=== PATIENT | female | born 1970 | race Caucasian/White ===

== ENCOUNTER 2024-12-20 09:20 | Outpatient (CLI) | payer BC, SELFPAY ==
--- OUTSIDE RECORDS SUMMARY | 2024-12-20 09:25 | XMS_ITS | Data Portability ---
Author Organization [facility] Address [address] [place] [address] Care Team Providers Care Sueding Machine Operator Name Role Phone [facility] Referring Provider [facility] Referring Provide r GRISELDA WONG Referring Provider Assessment Encounter Date Assessment Date Assessment LastModified by Organization Details LastModified Time 09/22/2022 09/22/2022 Mr. Chandler presents for a wellness visit. He follows up on diabetes and A1C is 7.5%. He feels glucose is better since starting the Januvia and he generally feels better. His weight is still in the morbidly obese category but he stays physically active. He is an excellent candidate for a GLP1 Inhibitor for the diabetes and the weight. He is compliant with CPAP. 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 Recently he has been followed for significant sciatica and had physical therapy. He has found the stretches do help and we encourage him to never stop those as he is able to work. He has a history of passing kidney stones and does experience significant pain during episodes. He has tamsulosin to take if needed. Vaccines are reviewed and are up to date except he should consider the new Shingrix Vaccine after he turns 51. Medications are reconciled. He uses occasional viagra and [employer] has the best brown. Lipids are controlled. He had an eye exam several months ago at the local [facility] and we will try to obtain those records. He has not had a history of retinopathy. He had a colonoscopy a year ago and had polyps including tubular adenoma, so will be followed regularly. Blood pressure is not quite at goal and he could not tolerate the 10 mg lisinopril so will remain on 5 mg. Ten year calculated CV risk is 6.09%. We encourage ongoing weight loss and healthy lifestyle. Not available 09/25/2022 23:48:25 09/26/2023 09/26/2023 Mr. Chandler presents for a wellness visit. He follows up on diabetes and A1C is down to 5.6%. He feels glucose is better since starting the Trulicity injections and has lost some weight. There has been some difficulty obtaining the medication through his pharmacy at times so he may miss a week here and there. We discussed he consider changing to a different pharmacy that may be more responsive. He enjoys his work with the [employer] and gets more exercise now. His weight is still in the morbidly obese category but is finally reducing. He is compliant with CPAP. 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 He has a history of significant sciatica and had physical therapy. He has found the stretches do help and we encourage him to never stop those as he is able to work. He has a history of passing kidney stones and does experience significant pain during episodes. He has tamsulosin to take if needed. He is drinking plenty of water now and we encourage that. Vaccines are reviewed and are basically up to date except he should consider the new Shingrix Vaccine at some point in the near future. Medications are reconciled. He still takes a long acting insulin and we will have him cut that dose to 20 units from 25. We are also discontinuing the glimepiride completely as the A1C has reduced to normal range of 5.6% on the GLP1 agonist. He has not had any hypogycemic reactions and we need to avoid those. He should continue the metformin but we hope to completely discontinue the insulin in the near future. Lipids are controlled. He has had eye exams at the local [facility] and we will try to obtain those records. He has not had a history of retinopathy. He had a colonoscopy in 2021 and had polyps including tubular adenoma, so he will likely be due again next year. Blood pressure is much better and should continue to improve with the weight reduction. Ten year calculated CV risk is 4.83%. We encourage ongoing weight loss and healthy lifestyle. We will follow up closely. Not available 09/27/2023 16:33:47 03/22/2024 03/22/2024 Mr. Chandler has been having nausea and dry heaves intermittently. He is on a higher dose of a GLP1 agonist with now a near normal A1C of 6.1%, and continues on Insulin. We suspect he may be having low glucose episodes and also GI side effects from the Trulicity. At this point we will begin a PPI and have him stop the insulin and the Trulicity and see how he feels. In addition labs show a high Calcium along with a high total protein but normal albumin. This is new and warrants further labs. He also has a slight elevation of WBC. Not available 03/24/2024 15:23:41 10/29/2024 10/29/2024 Tristan has generalized poison letitia that will be treated accordingly. Not available 10/29/2024 10:43:43 11/15/2024 11/15/2024 Mr. Chandler presents for a wellness visit. He follows up on diabetes and A1C has increased to 8.0%. It had decreased to 6.1% last fall when he was using the Trulicity at a higher dose and had lost weight. He had to cut the dose back due to GI upset and we realize he had discontinued the PPI and was having more acid reflux. We recommend he resume the Prilosec and try to increase the Trulicity again. feels glucose is better since starting the Trulicity injections and has lost some weight. He has gained a lot of weight back quickly and apparently only eats when he gets home after work. Eating during the day makes him more sleepy. He is compliant with his CPAP but still wakes up frequently. His is concerned about worsening of the cataplexy despite his medications. 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 His neurologist retired from private practice and he was seeing a separate sleep specialist. We discussed that there is a neurologist who also is a sleep specialist in [place] closer to where they live. We will refer him there to Dr. Wong. In the meantime we can increase the Protriptyline to twice daily as a trial. There are apparently some newer medications being used for the narcolepsy so we will defer to the neurologist for that. He has a history of significant sciatica and had physical therapy. He has found the stretches do help and we encourage him to never stop those as he is able to work. He was referred over 2 years ago to pain management after the MRI showed multi-level degenerative disc disease, facet arthrosis and a herniated disc at L5/S1. He had one injection that only helped a couple of days. He and his would like to have a different referral. We will recommend Dr. Espinoza at [facility]. He has a history of passing kidney stones and does experience significant pain during episodes. He has tamsulosin to take if needed. He is drinking plenty of water now and we encourage that. Vaccines are reviewed and are basically up to date except he did miss this past year's flu vaccine. He should consider the new Shingrix Vaccine at some point in the near future. Medications are reconciled. He used to take a long acting insulin and that was discontinued when he was taking a higher dose of the GLP1 agonist. We are advising him to start the PPI again and try to increase the Trulicity again. Lipids are controlled. He has had eye exams at the local [facility] and we will try to obtain those records. He has not had a history of retinopathy. He had a colonoscopy in 2021 and had polyps including tubular adenoma, so he will likely be due again by 2026. Blood pressure has increased a little and we note he has gained weight back and is not sleeping as well. However when he was taking a higher dose of Lisinopril he suffered hypotension. Ten year calculated CV risk is 9.53%. We encourage ongoing weight loss and healthy lifestyle. We will follow up closely. rommel Not available 11/17/2024 22:22:26 Plan of Treatment Reminders Order Date Submit Date Provider Last Modified By Organization Details Last Modified Time Details Appointments None recorded. Lab CMP, serum or plasma 2023 024 [employer] [facility], [address], [place], [address], 4 10:21:23 lipase, serum or plasma 2023 024 [employer] [facility], [address], [place], [address], 4 10:21:24 CBC w/ auto diff 2023 024 [employer] [facility], [address], [place], [address], 4 10:21:24 PTH (parathyroi d hormone), intact + calcium, serum or plasma 2023 024 [employer] [facility], [address], [place], [address], 4 16:21:39 HbA1c (hemoglobin A1c), blood 2023 024 [employer] [facility], [address], [place], [address], 4 10:21:24 Referral neurologist referral 2024 025 arelis Wong MD, [address] [facility] [address], [place], [address], 5 09:20:45 orthopedic spine surgeon referral 2024 025 arelis nguyen MD, [address] [facility], [place], [address], 5 09:20:45 sleep medicine referral 2024 025 TRANG Wong MD, [address] [facility] [address], [place], [address], 5 20:32:09 Procedures None recorded. Surgeries None recorded. Imaging None recorded. Medication Orders omeprazole 40 mg capsule,del ayed release 2024 025 [facility] #[id number], [address], [place], [place], [id number], 5 10:21:05 protriptyli ne 10 mg tablet 2024 025 [facility] #[id number], [address], [place], [id number], 5 10:21:11 Trulicity 1.5 mg/0.5 mL subcutaneou s pen injector 2024 025 [facility]64514, [address], [place], [id number], 5 10:21:13 dexamethaso ne sodium phosphate 4 mg/mL injection solution 2024 [facility]15876, [address], [place], [id number], 5 09:44:00 triamcinolo ne acetonide 0.1 % topical cream 2024 025 [facility] #14597, [address], [place], [id number], 5 10:40:17 methylpredn isolone 4 mg tablets in a dose pack 2024 025 [facility] #31071, [address], [place], [id number], 5 09:42:46 omeprazole 40 mg capsule,del ayed release 2023 025 [facility] #81645, [address], [place], [id number], 5 09:41:45 Ozempic 0.25 mg or 0.5 mg (2 mg/1.5 mL) subcutaneou s pen injector 2022 024 [facility] #63026, [address], [place], [id number], 10:13:56 pravastatin 40 mg tablet 2022 023 [facility], [address] , [place], [place], [id number], 11:46:46 Patient TargetsNo targets recorded. 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 Referring Physician: Court Figueroa [facility], Encounter Date: 11/15/2024 Orthopedic Spine Surgeon Ref erral for Degeneration of thoracolumbar intervertebral disc Referring Physician: Court Figueroa [facility], Encounter Date: 11/15/2024 Results Created Date Observation Date Name Description Value Unit Range Abnormal Flag Note LastModifiedBy Organization Detail LastModifiedTime 09/17/1909/19/2022 ALBUM IN, RANDO M URINE W/CRE ATINI NE creatinine, random urine 133 mg/dL 20-320 normal Not Available [facility] [address] [place], [address], 09/19/2022 12:19:12 09/17/1909/19/2022 ALBUM IN, RANDO M URINE W/CRE ATINI NE albumin, urine 1.1 mg/dL see note: normal Refer ence Range : Refer ence Range Not estab lishe d Not Available [facility] [address] [place], [address], 09/19/2022 12:19:12 09/17/19 23 09/19/2022 ALBUM IN, RANDO M URINE W/CRE ATINI NE albumin/crea tinine ratio, random urine 8 mcg/m g_cre at <30 normal The ADA defin es abnor malit ies in album in excre tion as follo ws: Album inuri a Categ ory Resul t (mcg/ mg creat inine ) Coby l to Mildl y incre ased <30 Moder ately incre ased 30-29 9 Sever sherwin incre ased > OR = 300 The ADA recom mends that at least two of three speci mens colle cted withi n a 3-6 month perio d be abnor mal befor e consi vin g a patie nt to be withi n a diagn ostic categ ory. Not Available [facility] [address] [place], [address], 09/19/2022 12:19:12 09/17/19 23 09/19/2022 LIPID PANEL , [place] cholesterol, total 160 mg/dL <200 normal Not Available [facility] [address] [place], [address], 09/19/2022 12:19:13 09/17/19 23 09/19/2022 LIPID PANEL , [place] HDL cholesterol 56 mg/dL > or = 40 normal Not Available [facility] [address] [place], [address], 09/19/2022 12:19:13 09/17/19 23 09/19/2022 LIPID PANEL , [place] triglyceride s 118 mg/dL <150 normal Not Available [facility] [address] [place], [address], 09/19/2022 12:19:13 09/17/19 23 09/19/2022 LIPID PANEL , [place] LDL-choleste rol 83 mg/dL _(nomi c) normal Refer ence range : <100 Bradley able range <100 mg/dL for prima ry preve ntion ; <70 mg/dL for patie nts with CHD or diabe tic patie nts with > or = 2 CHD risk facto rs. LDL-C is now calcu lated using the Merlene n-Hop kins calcu neville n, which is a valid ated novel metho d provi ding robina r accur acy than the Fried marge equat ion in the estim ation of LDL-C . Merlene mcdonald SS et al. LAILA. 2013; 310(1 9): 2061- 2068 (http ://ed ucati on.Qu estBlue Bottle Coffee. com/f aq/FA Q164) Not Available [facility] [address], [place], [address], 09/19/2022 12:19:13 09/17/19 23 09/19/2022 LIPID PANEL , [place] chol/HDLC ratio 2.9 (calc ) <5.0 normal Not Available [facility] [address], [place], [address], 09/19/2022 12:19:13 09/17/19 23 09/19/2022 LIPID PANEL , [place] non HDL cholesterol 104 mg/dL _(nomi c) <130 normal For patie nts with diabe ihsan plus 1 major ASCVD risk facto r, treat ing to a non-H DL-C goal of <100 mg/dL (LDL- C of <70 mg/dL ) is consi dered a thera peuti c optio n. Not Available [facility] [address], [place], [address], 09/19/2022 12:19:13 09/17/19 23 09/19/2022 COMPR EHENS BÁRBARA METAB OLIC PANEL glucose 146 mg/dL 65-139 high Non-f astin g refer ence inter cynthia Not Available [facility] [address], [place], [address], 09/19/2022 12:19:13 09/17/19 23 09/19/2022 COMPR EHENS BÁRBARA METAB OLIC PANEL urea nitrogen (BUN) 11 mg/dL 7-25 normal Not Available [facility] [address] [place], [address], 09/19/2022 12:19:13 09/17/19 23 09/19/2022 COMPR EHENS BÁRBARA METAB OLIC PANEL creatinine 0.73 mg/dL 0.70-1 .30 normal Not Available [facility] [address] [place], [address], 09/19/2022 12:19:13 09/17/19 23 09/19/2022 COMPR EHENS BÁRBARA METAB OLIC PANEL eGFR 110 mL/mi n/1.7 3m2 > or = 60 normal The eGFR is based on the CKD-E PI 2020 equat ion. To calcu late the new eGFR from a previ ous Creat inine or Cysta tin C resul t, go to https ://ruben w.bry freeman.o ruthann/coreen mcdaniels s/ kdoqi /gfr% 5Fcal culat or Not Available [facility] [address] [place], [address], 09/19/2022 12:19:13 09/17/19 23 09/19/2022 COMPR EHENS BÁRBARA METAB OLIC PANEL BUN/creatini ne ratio NOT APPLIC ABLE (calc ) 6-22 Not Available [facility] [address] [place], [address], 09/19/2022 12:19:13 09/17/19 23 09/19/2022 COMPR EHENS BÁRBARA METAB OLIC PANEL sodium 139 mmol/ L 135-14 6 normal Not Available [facility] [address] [place], [address], 09/19/2022 12:19:13 09/17/19 23 09/19/2022 COMPR EHENS BÁRBARA METAB OLIC PANEL potassium 4.5 mmol/ L 3.5-5. 3 normal Not Available [facility] [address] [facility] [place], [address], 09/19/2022 12:19:13 09/17/19 23 09/19/2022 COMPR EHENS BÁRBARA METAB OLIC PANEL chloride 102 mmol/ L 98-110 normal Not Available [facility] [address] [place] [address], [address], 09/19/2022 12:19:13 09/17/19 23 09/19/2022 COMPR EHENS BÁRBARA METAB OLIC PANEL carbon dioxide 29 mmol/ L 20-32 normal Not Available [facility] [address] [place], [address], 09/19/2022 12:19:13 09/17/19 23 09/19/2022 COMPR EHENS BÁRBARA METAB OLIC PANEL calcium 9.7 mg/dL 8.6-10 .3 normal Not Available [facility] [address] [place] [address], [address], 09/19/2022 12:19:13 09/17/19 23 09/19/2022 COMPR EHENS BÁRBARA METAB OLIC PANEL protein, total 7.3 g/dL 6.1-8. 1 normal Not Available [facility] [address] [place], [address], 09/19/2022 12:19:13 09/17/19 23 09/19/2022 COMPR EHENS BÁRBARA METAB OLIC PANEL albumin 4.4 g/dL 3.6-5. 1 normal Not Available [facility] [address] [place], [address], 09/19/2022 12:19:13 09/17/19 23 09/19/2022 COMPR EHENS BÁRBARA METAB OLIC PANEL globulin 2.9 g/dL_ (calc ) 1.9-3. 7 normal Not Available [facility] [address] [facility] [place], [address], 09/19/2022 12:19:13 09/17/19 23 09/19/2022 COMPR EHENS BÁRBARA METAB OLIC PANEL albumin/glob ulin ratio 1.5 (calc ) 1.0-2. 5 normal Not Available [facility] [address] [facility] [place], [address], 09/19/2022 12:19:13 09/17/19 23 09/19/2022 COMPR EHENS BÁRBARA METAB OLIC PANEL bilirubin, total 0.4 mg/dL 0.2-1. 2 normal Not Available [facility] [address] [place], [address], 09/19/2022 12:19:13 09/17/19 23 09/19/2022 COMPR EHENS BÁRBARA METAB OLIC PANEL alkaline phosphatase 92 U/L 35-144 normal Not Available [facility] [address] [facility] [place], [address], 09/19/2022 12:19:13 09/17/19 23 09/19/2022 COMPR EHENS BÁRBARA METAB OLIC PANEL AST 31 U/L 10-35 normal Not Available [facility] [address] [facility] [place], [address], 09/19/2022 12:19:13 09/17/19 23 09/19/2022 COMPR EHENS BÁRBARA METAB OLIC PANEL ALT 44 U/L 9-46 normal Not Available [facility] [address] [place], [address], 09/19/2022 12:19:13 09/17/19 23 09/19/2022 HEMOG LOBIN A1C hemoglobin A1C 7.5 %_of_ total _HGB <5.7 high For someo ne witho ut known diabe ihsan, a hemog lobin A1c value of 6.5% or great er indic ates that they may have diabe ihsan and this shoul d be confi rmed with a follo w-up test. For someo ne with known diabe ihsan, a value <7% indic ates that their diabe ihsan is well contr olled and a value great er than or equal to 7% indic ates subop timal contr ol. A1c targe ts shoul d be indiv idual ized based on durat ion of diabe ihsan, age, comor bid condi tions , and other consi derat ions. Curre ntly, no conse nsus exist s anjali mondragon use of hemog lobin A1c for diagn osis of diabe ihsan for child kb. Not Available [facility] [address] [place], [address], 09/19/2022 12:19:14 09/17/19 23 09/19/2022 TSH TSH 1.35 mIU/L 0.40-4 .50 normal Not Available [facility] [address] [place], [address], 09/19/2022 12:19:14 09/17/19 23 09/19/2022 CBC (INCL UDES DIFF/ PLT) white blood cell count 10.0 thous and/u L 3.8-10 .8 normal Not Available [facility] [address] [facility] [place], [address], 09/19/2022 12:19:15 09/17/19 23 09/19/2022 CBC (INCL UDES DIFF/ PLT) red blood cell count 4.86 tulio on/uL 4.20-5 .80 normal Not Available [facility] [address] [place], [address], 09/19/2022 12:19:15 09/17/19 23 09/19/2022 CBC (INCL UDES DIFF/ PLT) hemoglobin 14.5 g/dL 13.2-1 7.1 normal Not Available [facility] [address] [facility], [address], 09/19/2022 12:19:15 09/17/19 23 09/19/2022 CBC (INCL UDES DIFF/ PLT) hematocrit 42.1 % 38.5-5 0.0 normal Not Available [facility] [address] [place], [address], 09/19/2022 12:19:15 09/17/19 23 09/19/2022 CBC (INCL UDES DIFF/ PLT) MCV 86.6 fL 80.0-1 00.0 normal Not Available [facility] [address] [facility] [place], [address], 09/19/2022 12:19:15 09/17/19 23 09/19/2022 CBC (INCL UDES DIFF/ PLT) MCH 29.8 pg 27.0-3 3.0 normal Not Available [facility] [address] [place], [address], 09/19/2022 12:19:15 09/17/19 23 09/19/2022 CBC (INCL UDES DIFF/ PLT) MCHC 34.4 g/dL 32.0-3 6.0 normal Not Available [facility] [address] [place], [address], 09/19/2022 12:19:15 09/17/19 23 09/19/2022 CBC (INCL UDES DIFF/ PLT) RDW 12.6 % 11.0-1 5.0 normal Not Available [facility] [address] [place], [address], 09/19/2022 12:19:15 09/17/19 23 09/19/2022 CBC (INCL UDES DIFF/ PLT) platelet count 316 thous and/u L 140-40 0 normal Not Available [facility] [address] [place], [address], 09/19/2022 12:19:15 09/17/19 23 09/19/2022 CBC (INCL UDES DIFF/ PLT) MPV 10.6 fL 7.5-12 .5 normal Not Available [facility] [address] [place], [address], 09/19/2022 12:19:15 09/17/19 23 09/19/2022 CBC (INCL UDES DIFF/ PLT) absolute neutrophils 6410 cells /uL 1500-7 800 normal Not Available [facility] [address] [facility], [place], [address], 09/19/2022 12:19:15 09/17/19 23 09/19/2022 CBC (INCL UDES DIFF/ PLT) absolute lymphocytes 2170 cells /uL 850-39 00 normal Not Available [facility] [address] [place], [address], 09/19/2022 12:19:15 09/17/19 23 09/19/2022 CBC (INCL UDES DIFF/ PLT) absolute monocytes 1000 cells /uL 200-95 0 high Not Available [facility] [address] [place], [address], 09/19/2022 12:19:15 09/17/19 23 09/19/2022 CBC (INCL UDES DIFF/ PLT) absolute eosinophils 340 cells /uL 15-500 normal Not Available [facility] [address] [place], [address], 09/19/2022 12:19:15 09/17/19 23 09/19/2022 CBC (INCL UDES DIFF/ PLT) absolute basophils 80 cells /uL 0-200 normal Not Available [facility] [address], [place], [address], 09/19/2022 12:19:15 09/17/19 23 09/19/2022 CBC (INCL UDES DIFF/ PLT) neutrophils 64.1 % normal Not Available [facility] [address] [facility], [address], 09/19/2022 12:19:15 09/17/19 23 09/19/2022 CBC (INCL UDES DIFF/ PLT) lymphocytes 21.7 % normal Not Available [facility] [address] [place], [address], 09/19/2022 12:19:15 09/17/19 23 09/19/2022 CBC (INCL UDES DIFF/ PLT) monocytes 10.0 % normal Not Available [facility] [address] [place], [address], 09/19/2022 12:19:15 09/17/19 23 09/19/2022 CBC (INCL UDES DIFF/ PLT) eosinophils 3.4 % normal Not Available [facility] [address] [place], [address], 09/19/2022 12:19:15 09/17/19 23 09/19/2022 CBC (INCL UDES DIFF/ PLT) basophils 0.8 % normal Not Available [facility] [address] [place], [address], 09/19/2022 12:19:15 09/17/19 23 09/19/2022 HEPAT ITIS C AB W/REF L TO HCV RNA, QN, PCR hepatitis C antibody NON-RE ACTIVE non-re active normal Not Available [facility] [address] [facility], [address], 09/19/2022 12:19:15 09/17/19 23 09/19/2022 HEPAT ITIS C AB W/REF L TO HCV RNA, QN, PCR index 0.05 <1.00 normal HCV antib farheen was non-r eacti ve. There is no labor atory evide nce of HCV infec tion. In most cases , no furth er actio n is requi red. Howev er, if recen t HCV expos ure is suspe cted, a test for HCV RNA (test code 22601 ) is sugge sted. For addit ional infor matio n pleas e refer to http: //[facility] catronel n.que stdia gnost ics.c om/fa q/FAQ 22v1 (This link is being provi ded for infor matio nal/ educa john l purpo ses only. ) Not Available [facility] [address] [place], [address], 09/19/2022 12:19:15 08/25/19 24 08/26/2023 ALBUM IN, RANDO M URINE W/CRE ATINI NE creatinine, random urine 134 mg/dL 20-320 normal Not Available [facility] [address] [place], [address], 08/26/2023 09:39:38 08/25/19 24 08/26/2023 ALBUM IN, RANDO M URINE W/CRE ATINI NE albumin, urine 0.6 mg/dL see note: normal Refer ence Range : Refer ence Range Not estab lishe d Not Available [facility] [address] [place], [address], 08/26/2023 09:39:38 08/25/19 24 08/26/2023 ALBUM IN, RANDO M URINE W/CRE ATINI NE albumin/crea tinine ratio, random urine 4 mcg/m g_cre at <30 normal The ADA defin es abnor malit ies in album in excre tion as follo ws: Album inuri a Categ ory Resul t (mcg/ mg creat inine ) Coby l to Mildl y incre ased <30 Moder ately incre ased 30-29 9 Sever sherwin incre ased > OR = 300 The ADA recom mends that at least two of three speci mens colle cted withi n a 3-6 month perio d be abnor mal befor e consi vin g a patie nt to be withi n a diagn ostic categ ory. Not Available [facility] [address], [place], [address], 08/26/2023 09:39:38 08/25/19 24 08/26/2023 LIPID PANEL , STAND AGR[place] cholesterol, total 115 mg/dL <200 normal Not Available [facility] [address] [place], [address], 08/26/2023 09:39:39 08/25/19 24 08/26/2023 LIPID PANEL , STAND [place] HDL cholesterol 55 mg/dL > or = 40 normal Not Available [facility] [address], [place], [address], 08/26/2023 09:39:39 08/25/19 24 08/26/2023 LIPID PANEL , STAND [place] triglyceride s 60 mg/dL <150 normal Not Available [facility] [address], [place], [address], 08/26/2023 09:39:39 08/25/19 24 08/26/2023 LIPID PANEL , [place]AND [place] LDL-choleste rol 46 mg/dL _(nomi c) normal Refer ence range : <100 Bradley able range <100 mg/dL for prima ry preve ntion ; <70 mg/dL for patie nts with CHD or diabe tic patie nts with > or = 2 CHD risk facto rs. LDL-C is now calcu lated using the Merlene n-Hop kins calcu neville n, which is a valid ated novel metho d provi alanna robina r accur acy than the Fried marge equat ion in the estim ation of LDL-C . Merlene mcdonald SS et al. LAILA. 2013; 310(1 9): 2061- 2068 (http ://ed ucati on.José Miguel oneill Victivwendy. com/f aq/FA Q164) Not Available [facility] [address] [place], [address], 08/26/2023 09:39:39 08/25/19 24 08/26/2023 LIPID PANEL , [place]AND [place] chol/HDLC ratio 2.1 (calc ) <5.0 normal Not Available [facility] [address] [place], [address], 08/26/2023 09:39:39 08/25/19 24 08/26/2023 LIPID PANEL , [place]AND [place] non HDL cholesterol 60 mg/dL _(nomi c) <130 normal For patie nts with diabe ihsan plus 1 major ASCVD risk facto r, treat ing to a non-H DL-C goal of <100 mg/dL (LDL- C of <70 mg/dL ) is consi dered a thera peuti c optio n. Not Available [facility] [address] [place], [address], 08/26/2023 09:39:39 08/25/19 24 08/26/2023 COMPR EHENS BÁRBARA METAB OLIC PANEL glucose 98 mg/dL 65-99 normal Fasti ng refer ence inter cynthia Not Available [facility] [address] [place], [address], 08/26/2023 09:39:39 08/25/19 24 08/26/2023 COMPR EHENS BÁRBARA METAB OLIC PANEL urea nitrogen (BUN) 8 mg/dL 7-25 normal Not Available [facility] [address] [place], [address], 08/26/2023 09:39:39 08/25/19 24 08/26/2023 COMPR EHENS BÁRBARA METAB OLIC PANEL creatinine 0.71 mg/dL 0.70-1 .30 normal Not Available [facility] [address] [place], [address], 08/26/2023 09:39:39 08/25/19 24 08/26/2023 COMPR EHENS BÁRBARA METAB OLIC PANEL eGFR 110 mL/mi n/1.7 3m2 > or = 60 normal Not Available [facility] [address] [place], [address], 08/26/2023 09:39:39 08/25/19 24 08/26/2023 COMPR EHENS BÁRBARA METAB OLIC PANEL BUN/creatini ne ratio SEE NOTE: (calc ) 6-22 Not Repor tia: BUN and Creat inine are withi n refer ence range . Not Available [facility] [address] [place], [address], 08/26/2023 09:39:39 08/25/19 24 08/26/2023 COMPR EHENS BÁRBARA METAB OLIC PANEL sodium 137 mmol/ L 135-14 6 normal Not Available [facility] [address] [place], [address], 08/26/2023 09:39:39 08/25/19 24 08/26/2023 COMPR EHENS BÁRBARA METAB OLIC PANEL potassium 4.8 mmol/ L 3.5-5. 3 normal Not Available [facility] [address] [place], [address], 08/26/2023 09:39:39 08/25/19 24 08/26/2023 COMPR EHENS BÁRBARA METAB OLIC PANEL chloride 101 mmol/ L 98-110 normal Not Available [facility] [address] [place], [address], 08/26/2023 09:39:39 08/25/19 24 08/26/2023 COMPR EHENS BÁRBARA METAB OLIC PANEL carbon dioxide 30 mmol/ L 20-32 normal Not Available [facility] [address] [place], [address], 08/26/2023 09:39:39 08/25/19 24 08/26/2023 COMPR EHENS BÁRBARA METAB OLIC PANEL calcium 9.6 mg/dL 8.6-10 .3 normal Not Available [facility] [place], [address], 08/26/2023 09:39:39 08/25/19 24 08/26/2023 COMPR EHENS BÁRBARA METAB OLIC PANEL protein, total 7.3 g/dL 6.1-8. 1 normal Not Available [facility] [address] [place], [place] [address], [place], [address], 08/26/2023 09:39:39 08/25/19 24 08/26/2023 COMPR EHENS BÁRBARA METAB OLIC PANEL albumin 4.4 g/dL 3.6-5. 1 normal Not Available [facility] [address] [place], [place] [address], [address], 08/26/2023 09:39:39 08/25/19 24 08/26/2023 COMPR EHENS BÁRBARA METAB OLIC PANEL globulin 2.9 g/dL_ (calc ) 1.9-3. 7 normal Not Available [facility] [address] [place] [address], [address], 08/26/2023 09:39:39 08/25/19 24 08/26/2023 COMPR EHENS BÁRBARA METAB OLIC PANEL albumin/glob ulin ratio 1.5 (calc ) 1.0-2. 5 normal Not Available [facility] [address] [place] [address], [address], 08/26/2023 09:39:39 08/25/19 24 08/26/2023 COMPR EHENS BÁRBARA METAB OLIC PANEL bilirubin, total 0.4 mg/dL 0.2-1. 2 normal Not Available [facility] [address] [place], [place] [address] [place], [address], 08/26/2023 09:39:39 08/25/1908/26/2023 COMPR EHENS BÁRABRA METAB OLIC PANEL alkaline phosphatase 87 U/L 35-144 normal Not Available [facility] [address] [facility] [place], [address], 08/26/2023 09:39:39 08/25/19 24 08/26/2023 COMPR EHENS BÁRBARA METAB OLIC PANEL AST 16 U/L 10-35 normal Not Available [facility] [address] [facility] [place], [address], 08/26/2023 09:39:39 08/25/19 24 08/26/2023 COMPR EHENS BÁRBARA METAB OLIC PANEL ALT 16 U/L 9-46 normal Not Available [facility] [address] [facility], [address], 08/26/2023 09:39:39 08/25/1908/26/2023 HEMOG LOBIN A1C hemoglobin A1C 5.6 %_of_ total _HGB <5.7 normal For the purpo se of milagro brown for the prese nce of diabe ihsan: <5.7% Consi stent with the absen ce of diabe ihsan 5.7-6 .4% Consi stent with incre ased risk for diabe ihsan (pred iabet es) > or =6.5% Consi stent with diabe ihsan This assay resul t is consi stent with a decre ased risk of diabe ihsan. Curre ntly, no conse nsus exist s anjali mondragon use of hemog lobin A1c for diagn osis of diabe ihsan in child kb. Accor alanna to Ameri can Diabe ihsan Assoc iatio n (ADA) guide lines , hemog lobin A1c <7.0% repre sents optim al contr ol in non-p regna nt diabe tic patie nts. Diffe rent metri cs may apply to speci fic patie nt popul ation s. Stand ards of Medic al Care in Diabe ihsan(A DA). HbA1c perfo rmed on Abbot t platshauna orm. Not Available [facility] [address], [place], [address], 08/26/2023 09:39:40 08/25/1908/26/2023 TSH TSH 0.62 mIU/L 0.40-4 .50 normal Not Available [facility] [address], [place], [address], 08/26/2023 09:39:40 08/25/1908/26/2023 CBC (INCL UDES DIFF/ PLT) white blood cell count 7.7 thous and/u L 3.8-10 .8 normal Not Available [facility] [address], [place], [address], 08/26/2023 09:39:41 08/25/1908/26/2023 CBC (INCL UDES DIFF/ PLT) red blood cell count 5.17 tulio on/uL 4.20-5 .80 normal Not Available [facility] [address], [place], [address], 08/26/2023 09:39:41 08/25/1908/26/2023 CBC (INCL UDES DIFF/ PLT) hemoglobin 15.1 g/dL 13.2-1 7.1 normal Not Available [facility] [address], [place], [address], 08/26/2023 09:39:41 08/25/1908/26/2023 CBC (INCL UDES DIFF/ PLT) hematocrit 45.8 % 38.5-5 0.0 normal Not Available [facility] [address], [place], [address], 08/26/2023 09:39:41 08/25/1926 0808/26/2023 CBC (INCL UDES DIFF/ PLT) MCV 88.6 fL 80.0-1 00.0 normal Not Available [facility] [address] [place], [address], 08/26/2023 09:39:41 08/25/19 24 08/26/2023 CBC (INCL UDES DIFF/ PLT) MCH 29.2 pg 27.0-3 3.0 normal Not Available [facility] [address] [place], [address], 08/26/2023 09:39:41 08/25/1908/26/2023 CBC (INCL UDES DIFF/ PLT) MCHC 33.0 g/dL 32.0-3 6.0 normal Not Available [facility] [address] [place] [address], [address], 08/26/2023 09:39:41 08/25/1908/26/2023 CBC (INCL UDES DIFF/ PLT) RDW 12.6 % 11.0-1 5.0 normal Not Available [facility] [facility] [place], [address], 08/26/2023 09:39:41 08/25/1908/26/2023 CBC (INCL UDES DIFF/ PLT) platelet count 329 thous and/u L 140-40 0 normal Not Available [facility] [address] [place], [place] [address], [address], 08/26/2023 09:39:41 08/25/1908/26/2023 CBC (INCL UDES DIFF/ PLT) MPV 10.6 fL 7.5-12 .5 normal Not Available [facility] [place], [address], 08/26/2023 09:39:41 08/25/19 24 08/26/2023 CBC (INCL UDES DIFF/ PLT) absolute neutrophils 4836 cells /uL 1500-7 800 normal Not Available [facility] [address], [place], [address], 08/26/2023 09:39:41 08/25/19 24 08/26/2023 CBC (INCL UDES DIFF/ PLT) absolute lymphocytes 1863 cells /uL 850-39 00 normal Not Available [facility] [address], [place], [address], 08/26/2023 09:39:41 08/25/19 24 08/26/2023 CBC (INCL UDES DIFF/ PLT) absolute monocytes 708 cells /uL 200-95 0 normal Not Available [facility] [address], [place], [address], 08/26/2023 09:39:41 08/25/19 24 08/26/2023 CBC (INCL UDES DIFF/ PLT) absolute eosinophils 223 cells /uL 15-500 normal Not Available [facility] [address] [facility], [place], [address], 08/26/2023 09:39:41 08/25/19 24 08/26/2023 CBC (INCL UDES DIFF/ PLT) absolute basophils 69 cells /uL 0-200 normal Not Available [facility] [address], [place], [address], 08/26/2023 09:39:41 08/25/19 24 08/26/2023 CBC (INCL UDES DIFF/ PLT) neutrophils 62.8 % normal Not Available [facility] [address], [place], [address], 08/26/2023 09:39:41 08/25/19 24 08/26/2023 CBC (INCL UDES DIFF/ PLT) lymphocytes 24.2 % normal Not Available [facility] [address] [facility], [place], [address], 08/26/2023 09:39:41 08/25/19 24 08/26/2023 CBC (INCL UDES DIFF/ PLT) monocytes 9.2 % normal Not Available [facility] [address] [place], [address], 08/26/2023 09:39:41 08/25/19 24 08/26/2023 CBC (INCL UDES DIFF/ PLT) eosinophils 2.9 % normal Not Available [facility] [address] [place], [address], 08/26/2023 09:39:41 08/25/19 24 08/26/2023 CBC (INCL UDES DIFF/ PLT) basophils 0.9 % normal Not Available [facility] [address] [place], [address], 08/26/2023 09:39:41 08/25/19 24 08/26/2023 PSA, TOTAL PSA, total 0.37 NG/mL < or = 4.00 normal The total PSA value from this assay syste m is stand ardiz ed again st the WHO stand garland. The test resul t will be appro ximat sherwin 20% lower when mary red to the equim olar- stand ardiz ed total PSA (Hopkins man Coult er). Mary rison of seria l PSA resul ts shoul d be inter prete d with this fact in mind. This test was perfo rmed using the [employer] chemi lumin escen t metho d. Value s obtai marck from diffe rent assay metho ds canno t be used inter ha eably . PSA level s, regar dless of value , shoul d not be inter prete d as absol sokaogon evide nce of the prese nce or absen ce of disea se. Not Available [facility] [address] [place], [address], 08/26/2023 09:39:41 03/22/20 24 03/23/2024 COMPR EHENS BÁRBARA METAB OLIC PANEL glucose 122 mg/dL 65-99 high Fasti ng refer ence inter cynthai For someo ne witho ut known diabe ihsan, a gluco se value betwe en 100 and 125 mg/dL is consi stent with predi abete s and shoul d be confi rmed with a follo w-up test. Not Available [facility] [address] [place], [address], 03/23/2024 10:21:22 03/22/20 24 03/23/2024 COMPR EHENS BÁRBARA METAB OLIC PANEL urea nitrogen (BUN) 11 mg/dL 7-25 normal Not Available [facility] [address] [place], [address], 03/23/2024 10:21:22 03/22/20 24 03/23/2024 COMPR EHENS BÁRBARA METAB OLIC PANEL creatinine 0.84 mg/dL 0.70-1 .30 normal Not Available [facility] [address] [place], [address], 03/23/2024 10:21:22 03/22/20 24 03/23/2024 COMPR EHENS BÁRBARA METAB OLIC PANEL eGFR 104 mL/mi n/1.7 3m2 > or = 60 normal Not Available [facility] [address] [place], [address], 03/23/2024 10:21:22 03/22/20 24 03/23/2024 COMPR EHENS BÁRBARA METAB OLIC PANEL BUN/creatini ne ratio SEE NOTE: (calc ) 6-22 Not Repor tia: BUN and Creat inine are withi n refer ence range . Not Available [facility] [address] [place], [address], 03/23/2024 10:21:22 03/22/20 24 03/23/2024 COMPR EHENS BÁRBARA METAB OLIC PANEL sodium 140 mmol/ L 135-14 6 normal Not Available [facility] [address] [place], [address], 03/23/2024 10:21:22 03/22/20 24 03/23/2024 COMPR EHENS BÁRBARA METAB OLIC PANEL potassium 4.8 mmol/ L 3.5-5. 3 normal Not Available [facility] [address] [place], [address], 03/23/2024 10:21:22 03/22/20 24 03/23/2024 COMPR EHENS BÁRBARA METAB OLIC PANEL chloride 98 mmol/ L 98-110 normal Not Available [facility] [address] [place], [address], 03/23/2024 10:21:22 03/22/20 24 03/23/2024 COMPR EHENS BÁRBARA METAB OLIC PANEL carbon dioxide 30 mmol/ L 20-32 normal Not Available [facility] [address] [place], [address], 03/23/2024 10:21:22 03/22/20 24 03/23/2024 COMPR EHENS BÁRBARA METAB OLIC PANEL calcium 11.2 mg/dL 8.6-10 .3 high Not Available [facility] [address] [place], [address], 03/23/2024 10:21:22 03/22/20 24 03/23/2024 COMPR EHENS BÁRBARA METAB OLIC PANEL protein, total 8.5 g/dL 6.1-8. 1 high Not Available [facility] [address] [place], [address], 03/23/2024 10:21:22 03/22/20 24 03/23/2024 COMPR EHENS BÁRBARA METAB OLIC PANEL albumin 5.1 g/dL 3.6-5. 1 normal Not Available [facility] [address] [facility] [place], [address], 03/23/2024 10:21:22 03/22/20 24 03/23/2024 COMPR EHENS BÁRBARA METAB OLIC PANEL globulin 3.4 g/dL_ (calc ) 1.9-3. 7 normal Not Available [facility] [address] [place], [address], 03/23/2024 10:21:22 03/22/20 24 03/23/2024 COMPR EHENS BÁRBARA METAB OLIC PANEL albumin/glob ulin ratio 1.5 (calc ) 1.0-2. 5 normal Not Available [facility] [address] [place], [address], 03/23/2024 10:21:22 03/22/20 24 03/23/2024 COMPR EHENS BÁRBARA METAB OLIC PANEL bilirubin, total 0.7 mg/dL 0.2-1. 2 normal Not Available [facility] [address] [facility] [place], [address], 03/23/2024 10:21:22 03/22/20 24 03/23/2024 COMPR EHENS BÁRBARA METAB OLIC PANEL alkaline phosphatase 110 U/L 35-144 normal Not Available [facility] [address] [place], [address], 03/23/2024 10:21:22 03/22/20 24 03/23/2024 COMPR EHENS BÁRBARA METAB OLIC PANEL AST 22 U/L 10-35 normal Not Available [facility] [address] [place], [address], 03/23/2024 10:21:22 03/22/20 24 03/23/2024 COMPR EHENS BÁRBARA METAB OLIC PANEL ALT 23 U/L 9-46 normal Not Available [facility] [address] [place], [address], 03/23/2024 10:21:22 03/22/20 24 03/23/2024 HEMOG LOBIN A1C hemoglobin A1C 6.1 %_of_ total _HGB <5.7 high For someo ne witho ut known diabe ihsan, a hemog lobin A1c value betwe en 5.7% and 6.4% is consi stent with predi abete s and shoul d be confi rmed with a follo w-up test. For someo ne with known diabe ihsan, a value <7% indic ates that their diabe ihsan is well contr olled . A1c targe ts shoul d be indiv idual ized based on durat ion of diabe ihsan, age, comor bid condi tions , and other consi derat ions. This assay resul t is consi stent with an incre ased risk of diabe ihsan. Curre ntly, no conse nsus exist s regar ding use of hemog lobin A1c for diagn osis of diabe ihsan for child kb. This test was perfo rmed on the Vivien marce c503 platf orm. Effec tive 4, a ha e in test platf orms from the [facility]bot t Archi tect to the Vivien marce c503 may have shift ed HbA1c resul ts mary red to histo rical resul ts. Based on labor atory valid ation testi ng condu cted at [facility] , the Vivien platf orm relat bárbara to the [employer] platf orm had an avera ge incre ase in HbA1c value of < or = 0.3%. This diffe rence is withi n accep tia varia bilit y estab lishe d by the Natio nal [employer] hemog lobin Stand ardiz ation Progr am. Note that not all indiv idual s will have had a shift in their resul ts and direc t mary rison s betwe en histo rical and curre nt resul ts for testi ng condu cted on diffe rent platf orms is not recom johnie d. Not Available [facility] [address] [facility], [place], [address], 03/23/2024 10:21:24 03/22/20 24 03/23/2024 LIPAS E lipase 27 U/L 7-60 normal Not Available [facility] [address] [facility] [address], [place], [address], 03/23/2024 10:21:24 03/22/20 24 03/23/2024 CBC (INCL UDES DIFF/ PLT) white blood cell count 13.2 thous and/u L 3.8-10 .8 high Not Available [facility] [address] [facility] [place], [address], 03/23/2024 10:21:24 03/22/20 24 03/23/2024 CBC (INCL UDES DIFF/ PLT) red blood cell count 5.49 tulio on/uL 4.20-5 .80 normal Not Available [facility] [address] [facility] [facility], [place], [address], 03/23/2024 10:21:24 03/22/20 24 03/23/2024 CBC (INCL UDES DIFF/ PLT) hemoglobin 16.8 g/dL 13.2-1 7.1 normal Not Available [facility] [address] [facility] [place], [address], 03/23/2024 10:21:24 03/22/20 24 03/23/2024 CBC (INCL UDES DIFF/ PLT) hematocrit 51.3 % 38.5-5 0.0 high Not Available [facility] [address] [facility] [place], [address], 03/23/2024 10:21:24 03/22/20 24 03/23/2024 CBC (INCL UDES DIFF/ PLT) MCV 93.4 fL 80.0-1 00.0 normal Not Available [facility] [address] [facility] [place], [address], 03/23/2024 10:21:24 03/22/20 24 03/23/2024 CBC (INCL UDES DIFF/ PLT) MCH 30.6 pg 27.0-3 3.0 normal Not Available [facility] [address], [place], [address], 03/23/2024 10:21:24 03/22/20 24 03/23/2024 CBC (INCL UDES DIFF/ PLT) MCHC 32.7 g/dL 32.0-3 6.0 normal Not Available [facility] [address], [place], [address], 03/23/2024 10:21:24 03/22/20 24 03/23/2024 CBC (INCL UDES DIFF/ PLT) RDW 12.7 % 11.0-1 5.0 normal Not Available [facility] [address] [facility] [facility] [address], [place], [address], 03/23/2024 10:21:24 03/22/20 24 03/23/2024 CBC (INCL UDES DIFF/ PLT) platelet count 371 thous and/u L 140-40 0 normal Not Available [facility] [address] [facility] [facility] [address], [place], [address], 03/23/2024 10:21:24 03/22/20 24 03/23/2024 CBC (INCL UDES DIFF/ PLT) MPV 10.0 fL 7.5-12 .5 normal Not Available [facility] [address], [place], [address], 03/23/2024 10:21:24 03/22/20 24 03/23/2024 CBC (INCL UDES DIFF/ PLT) absolute neutrophils 9068 cells /uL 1500-7 800 high Not Available [facility] [address] [facility], [place], [address], 03/23/2024 10:21:24 03/22/20 24 03/23/2024 CBC (INCL UDES DIFF/ PLT) absolute lymphocytes 2495 cells /uL 850-39 00 normal Not Available [facility] [address], [place], [address], 03/23/2024 10:21:24 03/22/20 24 03/23/2024 CBC (INCL UDES DIFF/ PLT) absolute monocytes 1412 cells /uL 200-95 0 high Not Available [facility] [address], [place], [address], 03/23/2024 10:21:24 03/22/20 24 03/23/2024 CBC (INCL UDES DIFF/ PLT) absolute eosinophils 132 cells /uL 15-500 normal Not Available [facility] [address] [facility] [place], [address], 03/23/2024 10:21:24 03/22/20 24 03/23/2024 CBC (INCL UDES DIFF/ PLT) absolute basophils 92 cells /uL 0-200 normal Not Available [facility] [address], [place], [address], 03/23/2024 10:21:24 03/22/20 24 03/23/2024 CBC (INCL UDES DIFF/ PLT) neutrophils 68.7 % normal Not Available [facility] [address], [place], [address], 03/23/2024 10:21:24 03/22/20 24 03/23/2024 CBC (INCL UDES DIFF/ PLT) lymphocytes 18.9 % normal Not Available [facility] [address], [place], [address], 03/23/2024 10:21:24 03/22/20 24 03/23/2024 CBC (INCL UDES DIFF/ PLT) monocytes 10.7 % normal Not Available [facility] [address] [place], [address], 03/23/2024 10:21:24 03/22/20 24 03/23/2024 CBC (INCL UDES DIFF/ PLT) eosinophils 1.0 % normal Not Available [facility] [address] [place], [address], 03/23/2024 10:21:24 03/22/20 24 03/23/2024 CBC (INCL UDES DIFF/ PLT) basophils 0.7 % normal Not Available [facility] [address] [place], [address], 03/23/2024 10:21:24 03/26/20 24 03/27/2024 PTH, INTAC T (ICMA ) AND IONIZ ED CALCI UM parathyroid hormone, intact 32 pg/mL 16-77 normal Inter preti ve Guide Intac t PTH Calci um ----- ----- ----- --- ----- ----- ----- -- Coby l Parat hyroi d Coby l Coby l Hypop ronna yroid ism Low or Low Coby l Low Hyper parat hyroi dism Prima ry Coby l or High High Secon roman High Coby l or Low Terti vanessa High High Non-P ronna yroid Hyper calce liz Low or Low Coby l High Not Available [facility] [place] [facility] [address] [place], [address], 03/27/2024 16:21:38 03/26/20 24 03/27/2024 PTH, INTAC T (ICMA ) AND IONIZ ED CALCI UM calcium 9.3 mg/dL 8.6-10 .3 normal Not Available [facility] [place] [facility] [address] [place], [address], 03/27/2024 16:21:38 03/26/20 24 03/27/2024 PTH, INTAC T (ICMA ) AND IONIZ ED CALCI UM calcium, ionized 5.1 mg/dL 4.7-5. 5 normal Not Available [facility] [place] [facility] [address] [place], [address], 03/27/2024 16:21:38 10/30/19 25 10/30/2024 ALBUM IN, RANDO M URINE W/CRE ATINI NE creatinine, random urine 175 mg/dL 20-320 normal Not Available [facility] [place] [facility] [address] [facility] [place], [address], 10/30/2024 15:07:51 10/30/19 25 10/30/2024 ALBUM IN, RANDO M URINE W/CRE ATINI NE albumin, urine 0.9 mg/dL see note: normal Refer ence Range : Refer ence Range Not estab lishe d Not Available [facility] [place] [facility] [address] [facility], [place], [address], 10/30/2024 15:07:51 10/30/19 25 10/30/2024 ALBUM IN, RANDO M URINE W/CRE ATINI NE albumin/crea tinine ratio, random urine 5 mg/g_ creat <30 normal The ADA defin es abnor malit ies in album in excre tion as follo ws: Album inuri a Categ ory Resul t (mg/g creat inine ) Coby l to Mildl y incre ased <30 Moder ately incre ased 30-29 9 Sever sherwin incre ased > OR = 300 The ADA recom mends that at least two of three speci mens colle cted withi n a 3-6 month perio d be abnor mal befor e consi vin g a patie nt to be withi n a diagn ostic categ ory. Not Available [facility] [place] [facility] [address] [facility], [place], [address], 10/30/2024 15:07:51 10/30/19 25 10/30/2024 LIPID PANEL , [place] cholesterol, total 181 mg/dL <200 normal Not Available [facility] [place] [facility] [address] [facility] [place], [address], 10/30/2024 15:07:52 10/30/19 25 10/30/2024 LIPID PANEL , [place] HDL cholesterol 62 mg/dL > or = 40 normal Not Available [facility] [place] [facility] [address] [facility] [place], [address], 10/30/2024 15:07:52 10/30/19 25 10/30/2024 LIPID PANEL , [place] triglyceride s 138 mg/dL <150 normal Not Available [facility] [place] [facility] [address] [facility] [place], [address], 10/30/2024 15:07:52 10/30/19 25 10/30/2024 LIPID PANEL , [place] LDL-choleste rol 95 mg/dL _(nomi c) normal Refer ence range : <100 Bradley able range <100 mg/dL for prima ry preve ntion ; <70 mg/dL for patie nts with CHD or diabe tic patie nts with > or = 2 CHD risk facto rs. LDL-C is now calcu lated using the Merlene n-Hop kins calcu latio n, which is a valid ated novel metho d provi ding robina r accur acy than the Fried marge equat ion in the estim ation of LDL-C . Merlene mcdonald SS et al. LAILA. 2013; 310(1 9): 2061- 2068 (http ://ed ucati on.Qu Tariq parmarAirpushs. com/f aq/FA Q164) Not Available [facility] [place] [facility] [address] [facility] [place], [address], 10/30/2024 15:07:52 10/30/19 25 10/30/2024 LIPID PANEL , [place] chol/HDLC ratio 2.9 (calc ) <5.0 normal Not Available [facility] [place] [facility] [address] [place], [address], 10/30/2024 15:07:52 10/30/19 25 10/30/2024 LIPID PANEL , [place] non HDL cholesterol 119 mg/dL _(nomi c) <130 normal For patie nts with diabe ihsan plus 1 major ASCVD risk facto r, treat ing to a non-H DL-C goal of <100 mg/dL (LDL- C of <70 mg/dL ) is consi dered a thera peuti c optio n. Not Available [facility] [place] [facility] [address], [place], [address], 10/30/2024 15:07:52 10/30/19 25 10/30/2024 COMPR EHENS BÁRBARA METAB OLIC PANEL glucose 182 mg/dL 65-139 high Non-f astin g refer ence inter cynthia Not Available [facility] [address] [facility] [place], [address], 10/30/2024 15:07:52 10/30/19 25 10/30/2024 COMPR EHENS BÁRBARA METAB OLIC PANEL urea nitrogen (BUN) 8 mg/dL 7-25 normal Not Available [facility] [place] [facility] [address] [facility], [place], [address], 10/30/2024 15:07:52 10/30/19 25 10/30/2024 COMPR EHENS BÁRBARA METAB OLIC PANEL creatinine 0.80 mg/dL 0.70-1 .30 normal Not Available [facility] [place] [facility] [address], [place], [address], 10/30/2024 15:07:52 10/30/19 25 10/30/2024 COMPR EHENS BÁRBARA METAB OLIC PANEL eGFR 106 mL/mi n/1.7 3m2 > or = 60 normal Not Available [facility] [address], [place], [address], 10/30/2024 15:07:52 10/30/19 25 10/30/2024 COMPR EHENS BÁRBARA METAB OLIC PANEL BUN/creatini ne ratio SEE NOTE: (calc ) 6-22 Not Repor tia: BUN and Creat inine are withi n refer ence range . Not Available [facility] [address] [place], [address], 10/30/2024 15:07:52 10/30/19 25 10/30/2024 COMPR EHENS BÁRBARA METAB OLIC PANEL sodium 138 mmol/ L 135-14 6 normal Not Available [facility] [address] [place], [address], 10/30/2024 15:07:52 10/30/19 25 10/30/2024 COMPR EHENS BÁRBARA METAB OLIC PANEL potassium 4.5 mmol/ L 3.5-5. 3 normal Not Available [facility] [address] [place], [address], 10/30/2024 15:07:52 10/30/19 25 10/30/2024 COMPR EHENS BÁRBARA METAB OLIC PANEL chloride 100 mmol/ L 98-110 normal Not Available [facility] [address] [place], [address], 10/30/2024 15:07:52 10/30/19 25 10/30/2024 COMPR EHENS BÁRBARA METAB OLIC PANEL carbon dioxide 28 mmol/ L 20-32 normal Not Available [facility] [address] [place], [address], 10/30/2024 15:07:52 10/30/19 25 10/30/2024 COMPR EHENS BÁRBARA METAB OLIC PANEL calcium 10.1 mg/dL 8.6-10 .3 normal Not Available [facility] [address] [place], [address], 10/30/2024 15:07:52 10/30/19 25 10/30/2024 COMPR EHENS BÁRBARA METAB OLIC PANEL protein, total 7.6 g/dL 6.1-8. 1 normal Not Available [facility] [address] [facility] [place], [address], 10/30/2024 15:07:52 10/30/19 25 10/30/2024 COMPR EHENS BÁRBARA METAB OLIC PANEL albumin 4.6 g/dL 3.6-5. 1 normal Not Available [facility] [address] [facility] [place], [address], 10/30/2024 15:07:52 10/30/19 25 10/30/2024 COMPR EHENS BÁRBARA METAB OLIC PANEL globulin 3.0 g/dL_ (calc ) 1.9-3. 7 normal Not Available [facility] [address] [facility] [place], [address], 10/30/2024 15:07:52 10/30/19 25 10/30/2024 COMPR EHENS BÁRBARA METAB OLIC PANEL albumin/glob ulin ratio 1.5 (calc ) 1.0-2. 5 normal Not Available [facility] [address] [facility] [place], [address], 10/30/2024 15:07:52 10/30/19 25 10/30/2024 COMPR EHENS BÁRBARA METAB OLIC PANEL bilirubin, total 0.4 mg/dL 0.2-1. 2 normal Not Available [facility] [address] [facility] [place], [address], 10/30/2024 15:07:52 10/30/19 25 10/30/2024 COMPR EHENS BÁRBARA METAB OLIC PANEL alkaline phosphatase 104 U/L 35-144 normal Not Available [facility] [address] [facility] [place], [address], 10/30/2024 15:07:52 10/30/19 25 10/30/2024 COMPR EHENS BÁRBARA METAB OLIC PANEL AST 23 U/L 10-35 normal Not Available [facility] [place] [facility] [address] [facility], [address], 10/30/2024 15:07:52 10/30/19 25 10/30/2024 COMPR EHENS BÁRBARA METAB OLIC PANEL ALT 27 U/L 9-46 normal Not Available [facility] [place] [facility] [address] [facility] [place], [address], 10/30/2024 15:07:52 10/30/19 25 10/30/2024 HEMOG LOBIN A1C hemoglobin A1C 8.0 % <5.7 high For someo ne witho ut known diabe ihsan, a hemog lobin A1c value of 6.5% or great er indic ates that they may have diabe ihsan and this shoul d be confi rmed with a follo w-up test. For someo ne with known diabe ihsan, a value <7% indic ates that their diabe ihsan is well contr olled and a value great er than or equal to 7% indic ates subop timal contr ol. A1c targe ts shoul d be indiv idual ized based on durat ion of diabe ihsan, age, comor bid condi tions , and other consi derat ions. Curre ntly, no conse nsus exist s anjali mondragon use of hemog lobin A1c for diagn osis of diabe ihsan for child kb. Not Available [facility] [place] [facility] [address] [facility], [address], 10/30/2024 15:07:53 10/30/19 25 10/30/2024 TSH TSH 0.78 mIU/L 0.40-4 .50 normal Not Available [facility] [place] [facility] [address] [place], [address], 10/30/2024 15:07:53 10/30/19 25 10/30/2024 CBC (INCL UDES DIFF/ PLT) white blood cell count 10.1 thous and/u L 3.8-10 .8 normal Not Available [facility] [address] [facility] [place], [address], 10/30/2024 15:07:53 10/30/19 25 10/30/2024 CBC (INCL UDES DIFF/ PLT) red blood cell count 5.16 tulio on/uL 4.20-5 .80 normal Not Available [facility] [address] [facility] [place], [address], 10/30/2024 15:07:53 10/30/19 25 10/30/2024 CBC (INCL UDES DIFF/ PLT) hemoglobin 15.7 g/dL 13.2-1 7.1 normal Not Available [facility] [address] [facility] [place], [address], 10/30/2024 15:07:53 10/30/19 25 10/30/2024 CBC (INCL UDES DIFF/ PLT) hematocrit 47.7 % 38.5-5 0.0 normal Not Available [facility] [facility] [place], [address], 10/30/2024 15:07:53 10/30/19 25 10/30/2024 CBC (INCL UDES DIFF/ PLT) MCV 92.4 fL 80.0-1 00.0 normal Not Available [facility] [facility] [place], [address], 10/30/2024 15:07:53 10/30/19 25 10/30/2024 CBC (INCL UDES DIFF/ PLT) MCH 30.4 pg 27.0-3 3.0 normal Not Available [facility] [place], [address], 10/30/2024 15:07:53 10/30/19 25 10/30/2024 CBC (INCL UDES DIFF/ PLT) MCHC 32.9 g/dL 32.0-3 6.0 normal For adult s, a sligh t decre ase in the calcu lated MCHC value (in the range of 30 to 32 g/dL) is most likel y not clini isabell signi froylan t; laurie er, it shoul d be inter prete d with cauti on in [facility] with other red cell malinda eters and the patie nt's clini nomi condi tion. Not Available [facility] [place] [facility] [address], [place], [address], 10/30/2024 15:07:53 10/30/19 25 10/30/2024 CBC (INCL UDES DIFF/ PLT) RDW 12.4 % 11.0-1 5.0 normal Not Available [facility] [place] [facility] [address], [place], [address], 10/30/2024 15:07:53 10/30/19 25 10/30/2024 CBC (INCL UDES DIFF/ PLT) platelet count 320 thous and/u L 140-40 0 normal Not Available [facility] [place] [facility] [address], [place], [address], 10/30/2024 15:07:53 10/30/19 25 10/30/2024 CBC (INCL UDES DIFF/ PLT) MPV 10.2 fL 7.5-12 .5 normal Not Available [facility] [place] [facility] [address], [place], [address], 10/30/2024 15:07:53 10/30/19 25 10/30/2024 CBC (INCL UDES DIFF/ PLT) absolute neutrophils 6868 cells /uL 1500-7 800 normal Not Available [facility] [place] [facility] [address], [place], [address], 10/30/2024 15:07:53 10/30/19 25 10/30/2024 CBC (INCL UDES DIFF/ PLT) absolute lymphocytes 1980 cells /uL 850-39 00 normal Not Available [facility] [place] [facility] [address], [place], [address], 10/30/2024 15:07:53 10/30/19 25 10/30/2024 CBC (INCL UDES DIFF/ PLT) absolute monocytes 970 cells /uL 200-95 0 high Not Available [facility] [place] [facility] [address], [place], [address], 10/30/2024 15:07:53 10/30/19 25 10/30/2024 CBC (INCL UDES DIFF/ PLT) absolute eosinophils 212 cells /uL 15-500 normal Not Available [facility] [place] [facility] [address], [place], [address], 10/30/2024 15:07:53 10/30/19 25 10/30/2024 CBC (INCL UDES DIFF/ PLT) absolute basophils 71 cells /uL 0-200 normal Not Available [facility] [place] [facility] [address], [place], [address], 10/30/2024 15:07:53 10/30/19 25 10/30/2024 CBC (INCL UDES DIFF/ PLT) neutrophils 68 % normal Not Available [facility] [place] [facility] [address], [place], [address], 10/30/2024 15:07:53 10/30/19 25 10/30/2024 CBC (INCL UDES DIFF/ PLT) lymphocytes 19.6 % normal Not Available [facility] [place] [facility] [address], [place], [address], 10/30/2024 15:07:53 10/30/19 25 10/30/2024 CBC (INCL UDES DIFF/ PLT) monocytes 9.6 % normal Not Available [facility] [place] [facility] [address], [place], [address], 10/30/2024 15:07:53 10/30/19 25 10/30/2024 CBC (INCL UDES DIFF/ PLT) eosinophils 2.1 % normal Not Available [facility] [place] [facility] [address] [place], [address], 10/30/2024 15:07:53 10/30/19 25 10/30/2024 CBC (INCL UDES DIFF/ PLT) basophils 0.7 % normal Not Available [facility] [place] [facility] [address] [place], [address], 10/30/2024 15:07:53 10/30/19 25 10/30/2024 PSA, TOTAL PSA, total 0.31 NG/mL < or = 4.00 normal The total PSA value from this assay syste m is stand ardiz ed again st the WHO stand [place]. The test resul t will be appro ximat sherwin 20% lower when mary red to the equim olar- stand ardiz ed total PSA ([place] man Coult er). Mary rison of seria l PSA resul ts shoul d be inter prete d with this fact in mind. This test was perfo rmed using the [employer] chemi lumin escen t metho d. Value s obtai marck from diffe rent assay metho ds canno t be used inter ha eably . PSA level s, regar dless of value , shoul d not be inter prete d as absol sokaogon evide nce of the prese nce or absen ce of disea se. Not Available [facility] [place] [facility] [address] [place], [address], 10/30/2024 15:07:54 Result Notes None recorded. Problems Name Problem SNOMED Code Status Onset Date Resolution Date Notes Provider Name and Address Organization Details Recorded Time Diabetes mellitus 70690195 Active Not Available [facility] 2 19:16:36 Plantar fasciitis 551824011 Active Not Available [facility] 19:16:36 Disorder of sleep-wake cycle 932884164 Active Not Available [facility] 19:16:36 Disorder of urinary tract 72250925 Active Not Available [facility] 2 19:16:36 Uncontrolled type 2 diabetes mellitus 316640626 Active Not Available [facility] 2 19:16:36 Sleep apnea 47202237 Active Not Available [facility] 19:16:36 Hyperlipidemi a 38465587 Active Not Available [facility] 2 19:16:36 Herpes zoster 5006618 Active Not Available [facility] 2 19:16:36 Body mass index 40+ - severely obese 103754672 Active Not Available [facility] 2 19:16:36 Impotence of organic origin Active Not Available [facility] 2 19:16:36 Cataplexy and narcolepsy 153487289 Active Not Available [facility] 2 19:16:36 Kidney stone 22838047 Active Not Available [facility] 2 19:16:36 Palpitations 26838156 Active Not Available [facility] 2 19:16:36 Benign essential hypertension 8155098 Active Not Available [facility] 2 19:16:36 Actinic keratosis 820026823 Active Not Available [facility] 2 19:16:36 Anxiety state 636393358 Active Not Available [facility] 2 19:16:36 Glucose level outside reference range 735508673 Active Not Available [facility] 2 19:16:36 Depressive disorder 84682489 Active Not Available [facility] 2 19:16:36 Obesity 742848493 Active Not Available [facility] 2 19:16:36 Contusion of abdominal wall Active Not Available [facility] 2 19:16:36 Uric acid urolithiasis 629744474 Active Not Available [facility] 2 19:16:36 Narcolepsy 14854973 Active Not Available [facility] 2 19:16:36 Type 2 diabetes mellitus without complication 418904569 Active Not Available [facility] 2 19:16:36 Obstructive sleep apnea syndrome 72737179 Active Not Available [facility] 19:16:36 Extreme obesity with alveolar hypoventilati on 552765260 Active Not Available [facility] 19:16:36 Contusion of chest 72541380 Active Not Available [facility] 19:16:36 Restless legs 07330024 Active Not Available [facility] 2 19:16:36 Malaise and fatigue 383408404 Active Not Available [facility] 19:16:36 Problem Notes None recorded. Procedures Surgical History Date Name Laterality Status Provider Name and Address Organization Details Recorded Time 09/21/[address] Figueroa MD [address], [address], [facility] 09/27/2021 08:01:00 09/29/19 21 Cerumen Removal completed [facility] 09/28/2020 11:32:10 03/21/20 [address] Figueroa MD [address] [address], [place], [address], [facility] 03/21/2019 11:32:40 06/17/[address] Figueroa MD [address] [address], [place], [address], [facility] 06/17/2011 10:59:07 07/03/19 02 Cholecystectomy completed [facility] 06/17/2011 09:49:34 07/03/18 85 Orthopaedic Surgery completed [facility] 06/17/2011 09:50:06 Imaging Results None recorded. Procedure Notes None recorded. Medical Equipment None Reported. Allergies No known drug allergies Medications Name Sig Start Date Stop Date Status Note LastModified by Organization Details LastModified Time januvia 50 mg tabs 06/04 completed Not Available Not Available Not Available metronida zole 500 mg tabs 07/02 completed Not Available Not Available Not Available sildenafi l citrate 100 mg tabs 06/29 completed Not Available Not Available Not Available baclofen 10 mg tabs 06/04 completed Not Available Not Available Not Available tamsulosi n hcl 0.4 mg caps 06/29 completed Not Available Not Available Not Available protripty line hcl 10 mg tabs 06/04 completed Not Available Not Available Not Available glimepiri de 2 mg tabs 06/04 completed Not Available Not Available Not Available modafinil 200 mg tabs 06/04 completed Not Available Not Available Not Available gabapenti n 300 mg caps 06/29 completed Not Available Not Available Not Available sildenafi l 100 mg tabs 06/04 completed Not Available Not Available Not Available lantus solostar 100 unit/ml sopn 06/29 completed Not Available Not Available Not Available metformin hcl 500 mg tabs 06/04 completed Not Available Not Available Not Available imipramin e hcl 50 mg tabs 06/04 completed Not Available Not Available Not Available cyclobenz aprine 10 mg tablet TAKE 1 TABLET BY MOUTH EVERY 12 HOURS FOR 15 DAYS 09/25 completed Not Available Not Available Not Available amoxicill in 500 mg capsule TAKE 1 CAPSULE BY MOUTH THREE TIMES DAILY UNTIL GONE 09/25 completed Not Available Not Available Not Available Vivactil 5 mg tablet active Not Available Not Available Not Available metformin 500 mg tablet TAKE 2 TABLETS BY MOUTH ONCE DAILY active Not Available Not Available No t Available promethaz ine-DM 6.25 mg-15 mg/5 mL oral syrup TAKE 5 ML BY MOUTH EVERY 4 HOURS NEEDED 08/04 completed Not Available Not Available Not Available imipramin e 50 mg tablet TAKE 2 TABLET BY MOUTH ONCE DAILY IN PM active Not Available Not Available No t Available nystatin 100,000 unit/mL oral suspensio n active Not Available Not Available Not Available gabapenti n 600 mg tablet TAKE 2 TABLET BY MOUTH ONCE IN PM active Not Available Not Available No t Available sildenafi l 50 mg tablet TAKE 1 TO 2 TABLETS BY MOUTH DAILY NEEDED 09/25 completed Not Available Not Available Not Available azithromy jaswinder 250 mg tablet active Not Available Not Available No t Available pravastat in 40 mg tablet TAKE 1 TABLET BY MOUTH EVERY DAY active Not Available Not Available No t Available ofloxacin 0.3 % eye drops INSTILL 1 DROP INTO RIGHT EYE 4 TIMES A DAY 10/08 completed Not Available Not Available Not Available methylphe nidate 10 mg tablet take 1 tablet by mouth three times a day active Not Available Not Available No t Available valacyclo vir 1 gram tablet take 1 tablet by mouth every 12 hours 01/09 completed Not Available Not Available Not Available hydrocodo ne 5 mg-acetam inophen 325 mg tablet TAKE 1 TABLET BY MOUTH EVERY 6 HOURS NEEDED 09/25 completed Not Available Not Available Not Available meloxicam 15 mg tablet TAKE 1 TABLET BY MOUTH DAILY NEEDED FOR PAIN 08/04 completed Not Available Not Available Not Available clindamyc in HCl 150 mg capsule take 1 capsule by mouth four times a day for 7 days active Not Available Not Available No t Available penicilli n V potassium 500 mg tablet TAKE 1 TABLET BY MOUTH THREE TIMES DAILY UNTIL FINISHED 12/21 completed Not Available Not Available Not Available metronida zole 500 mg tablet TAKE 1 TABLET BY MOUTH EVERY 8 HOURS FOR 5 DAYS 08/04 completed Not Available Not Available Not Available Provigil 100 mg tablet Take 1 tablet twice a day by oral route. 2011 active WRITTEN Not Available Not Available Not Avai lable ciproflox acin 500 mg tablet TAKE 1 TABLET BY MOUTH EVERY 12 HOURS 12/21 completed Not Available Not Available Not Available omeprazol e 40 mg capsule,d elayed release TAKE 1 CAPSULE BY MOUTH EVERY DAY active Not Available Not Available No t Available sildenafi l 100 mg tablet take 1 tablet by mouth once daily if needed 07/02 completed Not Available Not Available Not Available triamcino lone acetonide 0.1 % topical cream APPLY THIN LAYER TOPICALL Y TO THE AFFECTED AREA TWICE DAILY active Not Available Not Available No t Available glimepiri de 2 mg tablet TAKE 1 TABLET BY MOUTH EVERY DAY 12/10 completed Not Available Not Available Not Available protripty line 10 mg tablet TAKE 1 TABLET BY MOUTH TWICE DAILY active Not Available Not Available No t Available oxycodone -acetamin ophen 5 mg-325 mg tablet TAKE 1 TABLET BY MOUTH EVERY 4 TO 6 HOURS FOR 4 DAYS NEEDED 08/04 completed Not Available Not Available Not Available ceftriaxo ne 1 gram solution for injection Take 0.5 g by injectio n route. 03/21 completed Not Available Not Available Not Available modafinil 200 mg tablet TAKE 1 TABLET BY MOUTH TWICE DAILY active Not Available Not Available No t Available tamsulosi n 0.4 mg capsule take 1 capsule by mouth daily if needed 06/09 completed Not Available Not Available Not Available ciproflox acin 0.3 % eye drops INSTILL 5 DROPS INTO AFFECTED EAR QID 03/01 completed Not Available Not Available Not Available OneTouch Ultra Test strips Test once daily at varying times and prn. 2011 active Not Available Not Available Not Avai lable baclofen 10 mg tablet take 2 to 3 tablets by mouth at bedtime 10/04 completed Not Available Not Available Not Available hydrocodo ne 7.5 mg-acetam inophen 325 mg tablet take 1 tablet by mouth every 6 hours if needed for pain 05/02 completed Not Available Not Available Not Available oseltamiv ir 75 mg capsule Take 1 capsule every day by oral route for 10 days. 11/15 completed Not Available Not Available Not Available lisinopri l 10 mg tablet TAKE 1 TABLET BY MOUTH EVERY DAY 08/04 completed Not Available Not Available Not Available promethaz ine 25 mg tablet take 1 tablet by mouth every 4 to 6 hours if needed for nausea and vomiting 03/21 completed Not Available Not Available Not Available ibuprofen 200 mg tablet Take 2 tablets every 6 hours by oral route as needed. active Not Available Not Available No t Available gabapenti n 300 mg capsule take 2 capsules by mouth every EVENING 08/06 completed Not Available Not Available Not Available Tylenol 325 mg tablet Take 1 tablet every 6 hours by oral route as needed. active Not Available Not Available No t Available pravastat in 20 mg tablet TAKE 1 TABLET BY MOUTH EVERY DAY 09/25 completed Not Available Not Available Not Available lisinopri l 5 mg tablet TAKE 1 TABLET BY MOUTH EVERY DAY 2024 active Not Available Not Available Not Avai lable Levaquin 500 mg tablet active Not Available Not Available Not Available metoprolo l succinate ER 25 mg tablet,ex tended release 24 hr Take 1 tablet every day by oral route. active Not Available Not Available No t Available dexametha sone sodium phosphate 4 mg/mL injection solution Inject 1 mL by intramus cular route. 11/15 completed Not Available Not Available Not Available methylpre dnisolone 4 mg tablets in a dose pack FOLLOW PACKAGE DIRECTIO NS 11/15 completed Not Available Not Available Not Available ketorolac 60 mg/2 mL intramusc ular solution Inject 0.5 mL by intramus cular route. 01/08 completed Not Available Not Available Not Available Lortab 5 mg-500 mg tablet Take 1 tablet every 4-6 hours by oral route. 2012 active CALLED TO [facility] [place] PER DR Penaloza for acute rib fracture s Not Available Not Available Not Available amoxicill in 875 mg-potass ium clavulana te 125 mg tablet TAKE 1 TABLET BY MOUTH TWICE DAILY UNTIL GONE 09/25 completed Not Available Not Available Not Available amoxicill in 500 mg-potass ium clavulana te 125 mg tablet take 1 tablet by mouth twice a day 12/26 completed Not Available Not Available Not Available Ventolin HFA 90 mcg/actua tion aerosol inhaler inhale 2 puffs by mouth every 4 hours if needed 04/20 completed Not Available Not Available Not Available neomycin- polymyxin -hydrocor t 3.5 mg-10,000 unit/mL-1 % ear drops,hu p SHAKE LIQUID AND INSTILL 4 DROPS TO AFFECTED EAR THREE TIMES DAILY 09/25 completed Not Available Not Available Not Available Xyrem 500 mg/mL oral solution 08/21 completed Not Available Not Available Not Available metformin ER 1,000 mg tablet,ex tended release 24hr (osmotic) Take 1 tablet twice a day by oral route with meals for 30 days. 2012 active Not Available Not Available Not Avai lable OneTouch UltraSoft Lancets use once daily as directed 2011 active Not Available Not Available Not Avai lable sildenafi l (pulmonar y hypertens ion) 20 mg tablet Take 2 tablets every day by oral route as needed. 09/22 completed Not Available Not Available Not Available chlorhexi dine gluconate 0.12 % mouthwash 11/15 completed Not Available Not Available Not Available NyQuil as needed 09/25 completed Not Available Not Available Not Available Glucosami ne 1 suppleme nt daily. 09/25 completed Not Available Not Available Not Available Advil Cold and Sinus as needed 01/05 completed Not Available Not Available Not Available BD Ultra-Fin e Original Pen Needle 29 gauge x 1/2 USE DIRCETED active Not Available Not Available No t Available Januvia 50 mg tablet TAKE 1 TABLET BY MOUTH EVERY DAY IN THE MORNING 01/05 completed Not Available Not Available Not Available Januvia 100 mg tablet TAKE 1 TABLET BY MOUTH DAILY 08/04 completed Not Available Not Available Not Available Nuvigil 150 mg tablet Take 1 tablet twice a day by oral route. 2011 active WRITTEN REPLACES PROVIGIL Not Available Not Available Not Available Robitussi n Cough and Cold CF 2.5 mg-5 mg-50 mg/5 mL oral liquid Take by oral route as needed. 01/05 completed Not Available Not Available Not Available Jardiance 10 mg tablet Take 1 tablet every day by oral route for 30 days. 08/04 completed Not Available Not Available Not Available Trulicity 1.5 mg/0.5 mL subcutane ous pen injector INJECT 1.5MG UNDER THE SKIN ONCE WEEKLY active Not Available Not Available No t Available Trulicity 0.75 mg/0.5 mL subcutane ous pen injector ADMINIST ER 0.75 MG UNDER THE SKIN 1 TIME WEEKLY active Not Available Not Available No t Available Basaglar KwikPen U-100 Insulin 100 unit/mL (3 mL) subcutane ous Inject by subcutan eous route for 30 days. 09/22 completed 25 units daily Not Available Not Available Not Available COVID-19 test specimen collectio n TEST DIRECTED 12/21 completed Not Available Not Available Not Available Trulicity 3 mg/0.5 mL subcutane ous pen injector inject 3mg under the skin every week 05/27 completed Not Available Not Available Not Available Semglee (insulin glargine- yfgn) Pen 100 unit/mL (3 mL) subcutane ous ADMINIST ER 25 UNITS UNDER THE SKIN EVERY DAY IN THE EVENING 05/27 completed Not Available Not Available Not Available Ozempic 0.25 mg or 0.5 mg (2 mg/3 mL) subcutane ous pen injector INJECT 0.25 MG UNDER THE SKIN ONCE EVERY WEEK DIRECTED 09/06 completed Not Available Not Available Not Available Vitals Date Recorded Body height Body mass index (BMI) Body weight Heart rate Oxygen saturation Oxygen saturation in Arterial blood by Pulse oximetry Body temperature Systolic blood pressure Diastolic blood pressure Provider Name and Address Organization Details Last Updated DateTime 3 172.72 cm 48.5 kg/m2 750642. 97 g 110 /min 97 % 97 % 97.3 [degF] 134 mm[Hg] 110 mm[Hg] [facility] 3 10:34:38 Date Recorded Body height Body mass index (BMI) Body weight Heart rate Oxygen saturation Oxygen saturation in Arterial blood by Pulse oximetry Body temperature Systolic blood pressure Diastolic blood pressure Provider Name and Address Organization Details Last Updated DateTime 4 172.72 cm 44.4 kg/m2 738372. 97 g 105 /min 97 % 97 % 97.2 [degF] 127 mm[Hg] 85 mm[Hg] [facility] 4 09:03:40 Date Recorded Body height Body mass index (BMI) Body weight Heart rate Oxygen saturation Oxygen saturation in Arterial blood by Pulse oximetry Body temperature Systolic blood pressure Diastolic blood pressure Provider Name and Address Organization Details Last Updated DateTime 5 172.72 cm 42 kg/m2 772407. 19 g 98 /min 98 % 98 % 97.5 [degF] 145 mm[Hg] 69 mm[Hg] [facility] 5 10:22:33 Date Recorded Body height Body mass index (BMI) Body weight Heart rate Oxygen saturation Oxygen saturation in Arterial blood by Pulse oximetry Body temperature Systolic blood pressure Diastolic blood pressure Provider Name and Address Organization Details Last Updated DateTime 5 172.72 cm 45.2 kg/m2 045152. 93 g 110 /min 96 % 96 % 97 [degF] 148 mm[Hg] 90 mm[Hg] [facility] 5 09:03:18 Date Recorded Body height Body mass index (BMI) Body weight Heart rate Oxygen saturation Oxygen saturation in Arterial blood by Pulse oximetry Body temperature Systolic blood pressure Diastolic blood pressure Provider Name and Address Organization Details Last Updated DateTime 4 172.72 cm 42 kg/m2 082653. 19 g 98 /min 97 % 97 % 97.7 [degF] 140 mm[Hg] 80 mm[Hg] [facility] 4 14:20:42 Social History Question Answer Notes LastModified by iWardaat ion Details LastModified Time Tobacco Smoking Status Former Smoker quit in 2014 Not Available [facility] 04/28/2020 03:11:16 Auto Related Injury? No Information not available 06/17/2011 What Is Your Level Of Caffeine Consumption? Moderate One Regular Soda Per Day. The Rest Of The Time It Is Water. Information not available 09/26/2023 How Much Tobacco Do You Chew? None Information not available 09/26/2023 Diabetes No Information no t available 06/17/2011 What Type Of Diet Are You Following? REGULAR [id number] Information not available 04/28/2020 Which Illicit Or Recreational Drugs Have You Used? None [id number] Information not available 04/28/2020 Education 12 Information no t available 06/17/2011 What Is The Highest Grade Or Level Of School You Have Completed Or The Highest Degree You Have Received? [id number] [place] Information not available 09/26/2023 Family History Of Heart Disease? No Information not available 06/17/2011 High Blood Pressure No Information not available 06/17/2011 Live Alone Or With Others? With Others Information not available 06/17/2011 Marital Status Informatio n not available 06/17/2011 What Was The Date Of Your Most Recent Tobacco Screening? 11/15/2024 Information not available 11/15/2024 How Many Children Do You Have? 2 [id number] Information not available 04/28/2020 Obese Yes Information no t available 01/27/2017 What Is Your Relationship Status? Information not available 09/26/2023 How Much Tobacco Do You Smoke? No [id number] Information not available 04/28/2020 General Stress Level High Information not available 06/17/2011 How Many Years Have You Smoked Tobacco? 20 [id number] Information not available 04/28/2020 Sex: Unknown Functional Status Question Answer Note LastModified by Organizat ion Details LastModified Time What is your level of alcohol consumption? None [id number] Information not available 04/28/2020 Are you currently employed? Yes [id number] Information not available 04/28/2020 Are you able to care for yourself? 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 None [id number] Information not available 04/28/2020 Mental Status None recorded. Family History Relationship Description Onset Age of this Age Resolved Age Notes LastModified by Organization Details LastModified Time Mother Problem 59 MVA trauma Not available 12/31/2015 15:50:33 Mother Heart disease stents (previ ously record ed as Heart Proble m) son Not available 12/31/2015 15:50:33 Notes:father and 2 sisters a re healthy Medical History Condition Response Coronary Artery Disease N Gout N Kidney Stones N Blood Diseases N Hyperthyroidism N COPD N Hypothyroidism N Depression N Developmental or Behavioral Disorders N Eczema, Hives or other skin conditions N Anxiety Disorder N Muscle, Joint, or Bone Problems N Vision or Eye Problems N Arthritis N Serious Illness or Injuries N Congenital Anomalies N Cancer N Stroke N Bladder or Kidney Problems N Hospital Admission other than N High Cholesterol N Liver Disease N Fibromyalgia N Kidney Disease N Heart Problems N Ear or Hearing Problems N ADD or ADHD N Thyroid Problems N Skin Problems N Anemia N Constipation N Diabetes N Bedwetting N Seizures/Epilepsy N Tuberculosis N Diverticulitis N Asthma N Allergies N GERD/Reflux N Heart Disease N Pulmonary Embolism N Hypertension N Osteoporosis N Chicken Pox N Immunizations Vaccine Type Date Status Note Provider Nam e and Address Organization Details Recorded Time Influenza, split virus, quadrivalent, preservative 7 completed Not Available [facility] 07/20/2019 02:12:14 Influenza, recombinant, quadrivalent, PF 8 completed Not Available [facility] 07/20/2019 02:12:13 Hep A, adult 8 completed Not Available [facility] 07/20/2019 02:12:07 pneumococcal polysaccharide PPV23 8 completed Not Available [facility] 07/20/2019 02:12:07 Hep A, adult 9 completed Not Available [facility] 07/20/2019 02:12:07 Influenza, recombinant, quadrivalent, PF 9 completed Not Available [facility] 07/20/2019 02:12:11 Influenza, recombinant, quadrivalent, PF 0 completed Not Available [facility] 04/07/2020 13:42:17 Tdap 2 completed [facility] 12/21/2021 14:46:54 Influenza, recombinant, quadrivalent, PF [address] Figueroa MD [address] [facility], [place], [address], [facility] 06/02/2022 23:01:15 DTaP 5 completed Not Available [facility] 02/14/2022 19:16:37 Influenza, split virus, quadrivalent, PF 3 completed Not Available [facility] 06/16/2023 09:36:36 COVID-19, mRNA, LNP-S, PF, 30 mcg/0.3 mL dose 1 completed Not Available [facility] 02/14/2022 19:16:37 COVID-19, mRNA, LNP-S, PF, 30 mcg/0.3 mL dose 1 completed Not Available [facility] 02/14/2022 19:16:37 Influenza, split virus, trivalent, preservative 2 completed Not Available [facility] 07/20/2019 02:12:11 Past Encounters Encounter ID Performer Location Encounter Start Date Encounter Closed Date Diagnosis/Indication Diagnosis SNOMED-CT Code Diagnosis ICD10 Code Diagnosis Note [id number] Court Figueroa MD [address] [address] 06/17/2011 09:33:54 06/20/2011 11:47:[id number] Figueroa MD [address] [address] 01/05/2012 15:04:38 01/06/2012 06:55:[id number] Figueroa MD [address] [address] 02/07/2012 11:37:50 02/07/2012 15:40:[id number] Figueroa MD [address] [address] 04/02/2012 10:32:06 04/02/2012 16:56:[id number] Figueroa MD [address] [address] 12/11/2012 15:27:48 12/11/2012 18:16:[id number] Figueroa MD [address] [address] 04/04/2013 10:51:08 04/04/2013 12:47:36 Diabetes mellitus 07611109 Impotence of organic origin 086097067 Malaise and fatigue 794742754 Narcolepsy 57874316 Obesity 577905662 Benign ess ential hypertension 0124954 Plantar fasciitis 869958429 [id number] Court Figueroa MD [address] [address] 7 05/09/2013 09:28:05 05/09/2013 13:10:36 Diabetes mellitus 20022956 Benign ess ential hypertension 3898354 Cataplexy and narcolepsy 413794402 [id number] Court Figueroa MD [facility] [address] [address] 09/23/2013 09:29:08 09/23/2013 10:35:34 Diabetes mellitus 55986524 Benign ess ential hypertension 3920281 Cataplexy and narcolepsy 223229889 [id number] Court Figueroa MD [facility] [address] [place] [id number] 7 10/27/2014 10:03:17 10/27/2014 13:27:19 Adult health examination 849531994 Plantar fasciitis 820132552 [id number] Court Figueroa MD [facility] [address] [place] [id number] 7 12/31/2015 14:51:29 01/06/2016 09:40:46 Herpes zoster 6857830 B02.9 Benign ess ential hypertension 1213323 I10 Hyperlipidemia 94047431 E78.5 Type 2 laquita betes mellitus without complication 834439627 E11.9 Sleep apnea 53327911 G47 .30 Uric acid urolithiasis 040545236 N20.9 Malaise and fatigue 2717 52059 R53.83 Adult heal th examination 324095114 Z00.01 Body mass index 40+ - severely obese 787950527 Z68.[id number] Figueroa MD [facility] [address] [address] 01/27/2017 15:17:54 02/14/2017 08:23:22 Cataplexy and narcolepsy 663496594 G47.411 Adult heal th examination 616443662 Z00.01 Uncontroll ed type 2 diabetes mellitus 025770662 E11.65 Obstructiv e sleep apnea syndrome 12015515 G47.33 Body mass index 40+ - severely obese 719682341 Z68.43 Essential hypertension 44495103 I10 [id number] [address] Figueroa MD [facility] [address] [place] [id number] 7 06/05/2017 11:00:25 06/06/2017 09:07:15 Cataplexy and narcolepsy 193788087 G47.411 Kidney stone 13559836 N2 0.0 Uncontroll ed type 2 diabetes mellitus 964939350 E11.65 Active or passive immunization 295505928 Z23 Body mass index 40+ - severely obese 805430849 Z68.42 Essential hypertension 79619221 I10 [id number] [address] Figueroa MD [facility] [address] [place] [id number] 7 06/04/2018 10:42:32 06/05/2018 14:18:37 Lower abdominal pain 24197076 R10.30 Essential hypertension 97236097 I10 Type 2 laquita betes mellitus without complication 471949491 E11.9 Hyperlipidemia 40151261 E78.5 History of calculus of kidney 010116429 Z87.442 Obstructiv e sleep apnea syndrome 06938741 G47.33 Cataplexy and narcolepsy 563868888 G47.411 Restless legs 91509017 G 25.81 Fatigue 72105545 R53.83 Active or passive immunization 415162577 Z23 [id number] Court Figueroa MD [facility] [address] [id number] 06/29/2018 09:03:05 07/04/2018 15:25:33 Adult health examination 855252219 Z00.01 Essential hypertension 95297276 I10 Complainin g of erectile dysfunction 862105027 N52.9 Hyperlipidemia 71781916 E78.5 Active or passive immunization 794317503 Z23 Cataplexy and narcolepsy 439333502 G47.411 Body mass index 40+ - severely obese 981990582 Z68.42 Type 2 laquita betes mellitus without complication 429524377 E11.9 History of calculus of kidney 413520320 Z87.442 Narcolepsy 78994945 G47. 419 Sleep apnea 20666798 G47 .[id number] Figueroa MD [facility] [address] [place] [id number] 7 01/07/2019 13:45:15 01/09/2019 09:27:09 Renal colic 5312332 N23 Type 2 laquita betes mellitus without complication 440152430 E11.9 Cataplexy and narcolepsy 012583631 G47.411 Essential hypertension 27947316 I10 Active or passive immunization 208295630 Z23 [id number] [address] Figueroa MD [facility] [address] [id number] 02/12/2019 13:44:44 02/12/2019 15:11:25 Acute otitis externa 79372982 H60.541 Essential hypertension 32913943 I10 [id number] [address] Figueroa MD [facility] [address] [place] [address] 7 03/21/2019 09:36:11 03/21/2019 16:09:09 Expiratory wheezing 6808760 R06.2 Acute lowe r respiratory tract infection 953130434 J22 [id number] Court Figueroa MD [facility] [place] [id number] 7 04/25/2019 15:16:06 04/26/2019 08:58:28 Impacted cerumen of bilateral ears 1472712300 482197 H61.23 Active or passive immunization 127011927 Z23 [id number] [address] Figueroa MD [facility] [place] [address] 7 12/23/2019 15:49:20 12/24/2019 08:32:38 Acute otitis externa 16420404 H60.541 Essential hypertension 91068964 I10 Diabetic p eripheral neuropathy 067713960 E11.40 Hyperlipidemia 36147151 E78.5 Fatigue 17803810 R53.[id number] Figueroa MD [place] [address] 7 06/09/2020 13:28:24 06/10/2020 15:56:40 Adult health examination 586597905 Z00.01 Essential hypertension 83577573 I10 Hyperlipidemia 80274624 E78.5 Cataplexy and narcolepsy 580921783 G47.411 Body mass index 40+ - severely obese 137901037 Z68.43 Type 2 laquita betes mellitus without complication 207259745 E11.9 History of calculus of kidney 292045703 Z87.442 Narcolepsy 00845613 G47. 419 Sleep apnea 31254869 G47 .30 Screening for malignant neoplasm of colon 574490341 Z12.[id number] Figueroa MD [facility] [address] [address] 08/04/2020 14:43:30 08/05/2020 17:10:10 Essential hypertension 94786842 I10 Hyperlipidemia 87287387 E78.5 Uncontroll ed type 2 diabetes mellitus 096450079 E11.65 Fatigue 23328498 R53.83 Solar lentigo 44331676 L 81.[id number] Figueroa MD [facility] [address] [id number] 09/28/2020 11:16:48 09/29/2020 08:13:07 Acute otitis externa 02883882 H60.541 Serous otitis media 8032 7007 H65.04 Restless legs 99711753 G 25.[id number] Figueroa MD [facility] [address] [address] 01/05/2021 09:16:55 01/11/2021 10:15:59 Diastasis recti 04983628 M62.08 Essential hypertension 34767384 I10 Hyperlipidemia 51797276 E78.5 Cataplexy and narcolepsy 358706794 G47.411 Body mass index 40+ - severely obese 306113009 Z68.43 Type 2 laquita betes mellitus without complication 973069489 E11.9 History of calculus of kidney 410188315 Z87.442 Narcolepsy 27498847 G47. 419 Sleep apnea 91572070 G47 .[id number] Figueroa MD [address] [address] 07/26/2021 13:56:44 07/27/2021 08:46:41 Sore throat 167133977 J02.9 Abdominal pain 17967425 R10.9 Type 2 laquita betes mellitus without complication 981160468 E11.9 Diverticulitis 291654083 K57.92 Body mass index 40+ - severely obese 855484022 Z68.[id number] Figueroa MD [address] [address] 12/21/2021 13:30:15 12/23/2021 08:56:16 Allergic reaction caused by insect bite and/or insect sting 278463511 W57.XXXA Uncontroll ed type 2 diabetes mellitus 484476100 E11.65 Essential hypertension 79960821 I10 Hyperlipidemia 43943860 E78.5 Fatigue 48223233 R53.83 Active or passive immunization 614203206 Z23 Screening for malignant neoplasm of prostate 307812123 Z12.[id number] Figueroa MD [facility] [address] [address] 01/24/2022 15:18:13 01/25/2022 08:45:18 Contusion of right chest wall 8410437933 1437179 S20.211A [id number] Court Figueroa MD [facility] [place] [id number] 7 06/02/2022 09:47:29 06/06/2022 09:59:00 Administration of influenza vaccine 38779725 Z23 Diabetic p eripheral neuropathy 353811715 E11.40 Left side sciatica 81809 56931 19376 M54.32 Restless legs 06342477 G 25.[id number] Figueroa MD [facility] [place] [id number] 7 08/04/2022 10:30:12 08/08/2022 08:36:47 Complaining of erectile dysfunction 872042464 N52.9 Left side sciatica [id number] Figueroa MD [address] [address] 09/22/2022 10:29:12 09/26/2022 08:03:32 Adult health examination 713035533 Z00.01 Essential hypertension 46387333 I10 Hyperlipidemia 05226684 E78.5 Cataplexy and narcolepsy 709896513 G47.411 Body mass index 40+ - severely obese 210936493 Z68.43 Type 2 laquita betes mellitus without complication 482329636 E11.9 History of calculus of kidney 314904085 Z87.442 Narcolepsy 25099939 G47. 419 Sleep apnea 30459650 G47 .30 Uncontroll ed type 2 diabetes mellitus 594718756 E11.65 Left side sciatica 13086 19341 34618 M54.32 Screening for cardiovascular system disease 023059319 Z13.[id number] Figueroa MD [facility] [address] [place] [address] 09/26/2023 09:02:41 09/28/2023 08:37:34 Adult health examination 622351649 Z00.01 Essential hypertension 90107976 I10 Hyperlipidemia 20315806 E78.5 Cataplexy and narcolepsy 185501322 G47.411 Body mass index 40+ - severely obese 306090674 Z68.41 Type 2 laquita betes mellitus without complication 626414219 E11.9 History of calculus of kidney 382585555 Z87.442 Narcolepsy 58266569 G47. 419 Sleep apnea 35405569 G47 .30 Screening for cardiovascular system disease 087767892 Z13.[id number] Figueroa MD [facility] [address] [address] 03/22/2024 14:19:32 03/25/2024 14:17:11 Abdominal pain 23103153 R10.9 Gastroesop hageal reflux disease 748622167 K21.9 Type 2 laquita betes mellitus without complication 554413772 E11.9 Hypercalcemia 28205225 E 83.[id number] Figueroa MD [facility] [address] [address] 10/29/2024 10:13:03 10/29/2024 11:00:04 Allergic contact dermatitis caused by urushiol from [facility] [place] letitia 075411055 L23.[id number] Figueroa MD [facility] [address] [address] 11/15/2024 08:51:47 11/18/2024 10:08:28 Adult health examination 355694687 Z00.01 Essential hypertension 90711907 I10 Hyperlipidemia 93406091 E78.5 Cataplexy and narcolepsy 553775810 G47.411 Type 2 laquita betes mellitus without complication 400377878 E11.9 History of calculus of kidney 820935047 Z87.442 Narcolepsy 75552819 G47. 419 Sleep apnea 15692137 G47 .30 Screening for cardiovascular system disease 150823912 Z13.6 Cataplexy 14739055 G47.4 11 Degenerati on of thoracolumbar intervertebral disc 93679940 M51.35 Gastroesop hageal reflux disease 768035971 K21.9 Body mass index 40+ - severely obese 306880097 Z68.42 Review of medication 182 980383 Z79.899 Health Concerns Section Related Observation LastModified by Organization Detai ls LastModified Time None Recorded Concern Status LastModified by Organization Details LastModified Time None Recorded Advance Directives Directive None Recorded Payers Insurance Date Sequence Insurance Name Policy Number Policy Shah Covered Member ID Shah Member ID Guarantor Name 11/15/2024 1 [place] [facility] [id number] [place] Tristan Chandler [id number] Tristan Chandler 11/15/2024 1 [place] [facility] P [id number] Tristan Chandler [id number] Tristan Chandler 11/15/2024 1 [place] [id number] Tristan Chandler [id number] Tristan Chandler 11/15/2024 1 [place] [id number] Tristan Chandler [id number] Tristan Chandler 11/15/2024 1 [place] [facility] [place]) [id number] Tristan Chandler [id number] Tristan Chandler 02/10/2017 1 *SELF PAY* Alvaro Chandler 11/15/2024 1 [place] [facility] - [place] [facility] [id number] Tristan Chandler [id number] Tristan Chandler 11/18/2024 1 [employer] [id number] Yesenia Chandler [id number] Tristan Chandler 11/15/2024 1 [facility] [id number] Tristan Chandler [id number] Tristan Chandler Notes Date Note Type Note Provider Name and Address Organization Details Recorded Time 09/22/2022 text/html he did have a ba ck injection about 3 weeks ago and it helped but started again this past Monday. Takes a muscle relaxant at night.He has not had shingles vaccines and should start that today.He enjoys his work with the [address] Figueroa MD [address] [facility], [facility], [place], [address], [facility] 09/25/2022 23:48:51 03/22/2024 text/html having some issu es with erratic abdominal pain and some vomiting.. He is on the 3 mg trulicity weekly now. This has been going on for 3 weeks now. He had a few crackers and peaches today. His last Trulicity was on Monday. We will have him skip the Trulicity this Monday. Also some diarrhea lately. No coughing or congestion. He is tired as well.. He will hold the insulin and the daytime metformin. He bought some pepcid ac yesterday He has been able to keep down most of the water. His vomiting is mostly dry heaving. Court Figueroa MD [address] [address], [place], [address], [facility] 03/24/2024 15:26:40 10/29/2024 text/html poison letitia arms, torso, and neck and very allergic Court Figueroa MD [address] [address], [place], [address], [facility] 10/29/2024 10:43:56 11/15/2024 text/html had a knot on hi s head after hitting it on concrete falling backwards but no LOC and has a goose egg there.Needs a new referral for sleep medicine, narcolepsy and cataplexy issues. His medications were working and have not for some time. He used to follow with Dr. Bev Garza but she has retired from private practice.A board fell across his toes on the right foot a month ago and it did bruise significantly and now the little toe is staying numb but does not hurt like it did. We suspect he broke the little toe and it is healing. Court Figueroa MD [address] [facility], [facility], [place], [address], [facility] 11/17/2024 22:31:48
--- OUTSIDE RECORDS SUMMARY | 2024-12-20 09:25 | XMS_ITS | Continuity of Care Document ---
Author Organization [facility] Address [address] [facility], [address] [place] [address] Care Team Providers Care Deli Manager Name Role Phone [facility] Referring Provider [phone] [facility] Referring Provide r GRISELDA WONG Referring Provider Assessment Encounter Date Assessment Date Assessment LastModified by Organization Details LastModified Time 10/29/2024 10/29/2024 Tristan has generalized poison letitia that will be treated accordingly. Not available 10/29/2024 10:43:43 Plan of Treatment Reminders Order Date Submit Date Provider Last Modified By Organization Details Last Modified Time Details Appointments None recorded. Lab None recorded. Referral None recorded. Procedures None recorded. Surgeries None recorded. Imaging None recorded. Medication Orders dexamethaso ne sodium phosphate 4 mg/mL injection solution 2024 025 [employer] #[id number], [address] [place], [place], [id number], 09:44:00 triamcinolo ne acetonide 0.1 % topical cream 2024 025 [facility] #[id number], [address], [id number], 5 10:40:17 methylpredn isolone 4 mg tablets in a dose pack 2024 025 [facility] #[id number], [address] [place], [place], [id number], 5 09:42:46 Patient TargetsNo targets recorded. Patient InstructionsNo instructions recorded. Reason for Referral None Reported. Problems Name Problem SNOMED Code Status Onset Date Resolution Date Notes Provider Name and Address Organization Details Recorded Time Diabetes mellitus 22462805 Active Not Available [facility] 2 19:16:36 Plantar fasciitis 569379489 Active Not Available [facility] 2 19:16:36 Disorder of sleep-wake cycle 008848021 Active Not Available [facility] 2 19:16:36 Disorder of urinary tract 92789707 Active Not Available [facility] 2 19:16:36 Uncontrolled type 2 diabetes mellitus 249483552 Active Not Available [facility] 2 19:16:36 Sleep apnea 33505506 Active Not Available [facility] 2 19:16:36 Hyperlipidemi a 80422681 Active Not Available [facility] 2 19:16:36 Herpes zoster 4575093 Active Not Available [facility] 2 19:16:36 Body mass index 40+ - severely obese 222206756 Active Not Available [facility] 2 19:16:36 Impotence of organic origin Active Not Available [facility] 2 19:16:36 Cataplexy and narcolepsy 396746041 Active Not Available [facility] 2 19:16:36 Kidney stone 62501451 Active Not Available [facility] 2 19:16:36 Palpitations 01959280 Active Not Available [facility] 2 19:16:36 Benign essential hypertension 3108433 Active Not Available [facility] 2 19:16:36 Actinic keratosis 129768099 Active Not Available [facility] 2 19:16:36 Anxiety state 352871518 Active Not Available [facility] 2 19:16:36 Glucose level outside reference range 757465896 Active Not Available [facility] 2 19:16:36 Depressive disorder 18858588 Active Not Available [facility] 2 19:16:36 Obesity 071894134 Active Not Available [facility] 2 19:16:36 Contusion of abdominal wall Active Not Available [facility] 2 19:16:36 Uric acid urolithiasis 691728440 Active Not Available [facility] 19:16:36 Narcolepsy 84482853 Active Not Available [facility] 2 19:16:36 Type 2 diabetes mellitus without complication 499703152 Active Not Available [facility] 2 19:16:36 Obstructive sleep apnea syndrome 84413661 Active Not Available [facility] 19:16:36 Extreme obesity with alveolar hypoventilati on 096690824 Active Not Available [facility] 19:16:36 Contusion of chest 54250314 Active Not Available [facility] 19:16:36 Restless legs 55856210 Active Not Available [facility] 2 19:16:36 Malaise and fatigue 312745010 Active Not Available [facility] 19:16:36 Problem Notes None recorded. Procedures Surgical History Date Name Laterality Status Provider Name and Address Organization Details Recorded Time 09/21/19 [address] Figueroa MD [address], [address], [facility] 09/27/2021 08:01:00 09/29/19 21 Cerumen Removal completed [facility] 09/28/2020 11:32:10 03/21/20 19 Neb[address] tx completed Court Figueroa MD [address], [address], [facility] 03/21/2019 11:32:40 06/17/20 [address] completed [address] Figueroa MD [address], [address], [facility] 06/17/2011 10:59:07 07/03/19 02 Cholecystectomy completed [facility] 06/17/2011 09:49:34 07/03/18 85 Orthopaedic Surgery completed Antoine [facility] 06/17/2011 09:50:06 Imaging Results None recorded. Procedure Notes None recorded. Medical Equipment None Reported. Allergies No known drug allergies Medications Name Sig Start Date Stop Date Status Note LastModified by Organization Details LastModified Time sildenafi l citrate 100 mg tabs 06/29 [...] completed Not Available Not Available Not Available januvia 50 mg tabs 06/04 completed Not [...] tablet by mouth once daily if needed 12/31 /2018 completed Not Available Not Available Not Available [...] Not Available Not Available No t Available Tiera Thakkar U-100 Insulin 100 unit/mL (3 mL) subcutane [...] Updated DateTime 5 172.72 cm 42 kg/m2 509352. 19 g 98 /min 98 % 98 % 97.5 [degF] 145 mm[Hg] 69 mm[Hg] [facility] 5 10:22:33 Social History Question Answer Notes LastModified by Organizat ion Details LastModified Time Tobacco Smoking Status Former Smoker quit in 2014 Not Available [facility] 04/28/2020 03:11:16 Auto Related Injury? No Information not available 06/17/2011 What Is Your Level Of Caffeine Consumption? Moderate One Regular Soda Per Day. The Rest Of The Time It Is Water. Information not available 09/26/2023 How Much Tobacco Do You Chew? None Information not available 09/26/2023 Diabetes No Information no t available 06/17/2011 What Type Of Diet Are You Following? REGULAR [id number] Information not available 04/28/2020 Which Illicit Or Recreational Drugs Have You Used? None [id number] Information not available 04/28/2020 Education 12 Information no t available 06/17/2011 What Is The Highest Grade Or Level Of School You Have Completed Or The Highest Degree You Have Received? [id number] [facility] Information not available 09/26/2023 Family History Of Heart Disease? No Information not available 06/17/2011 High Blood Pressure No Information not available 06/17/2011 Live Alone Or With Others? With Others Information not available 06/17/2011 Marital Status Informatio n not available 06/17/2011 What Was The Date Of Your Most Recent Tobacco Screening? 11/15/2024 Information not available 11/15/2024 How Many Children Do You Have? 2 [id number] Information not available 04/28/2020 Obese Yes Information no t available 01/27/2017 What Is Your Relationship Status? Information not available 09/26/2023 How Much Tobacco Do You Smoke? No [id number] Information not available 04/28/2020 General Stress Level High Information not available 06/17/2011 How Many Years Have You Smoked Tobacco? 20 [id number] Information not available 04/28/2020 Sex: Unknown Functional Status Question Answer Note LastModified by Organizat ion Details LastModified Time What is your level of alcohol consumption? None [id number] Information not available 04/28/2020 Are you currently employed? Yes [id number] Information not available 04/28/2020 Are you able to care for yourself? 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 None [id number] Information not available 04/28/2020 Mental Status None recorded. Family History Relationship Description Onset Age of this Age Resolved Age Notes LastModified by Organization Details LastModified Time Mother Problem 59 MVA trauma [email or web address] Not available 12/31/2015 15:50:33 Mother Heart disease stents (previ ously record ed as Heart Proble m) [email or web address] Not available 12/31/2015 15:50:33 Notes:father and 2 sisters a re healthy Medical History Condition Response Coronary Artery Disease N Gout N Kidney Stones N Blood Diseases N Hyperthyroidism N COPD N Depression N Hypothyroidism N Developmental or Behavioral Disorders N Eczema, [...] virus, quadrivalent, preservative 7 completed Not Available [facility] 07/20/2019 02:12:14 Influenza, recombinant, quadrivalent, PF 8 completed Not Available [facility] 07/20/2019 02:12:13 Hep A, adult 8 completed Not Available [facility] 07/20/2019 02:12:07 pneumococcal polysaccharide PPV23 8 completed Not Available [facility] 07/20/2019 02:12:07 Hep A, adult 9 completed Not Available [facility] 07/20/2019 02:12:07 Influenza, recombinant, quadrivalent, PF 9 completed Not Available [facility] 07/20/2019 02:12:11 Influenza, recombinant, quadrivalent, PF 0 completed Not Available [facility] 04/07/2020 13:42:17 Tdap 2 completed [facility] 12/21/2021 14:46:54 Influenza, recombinant, quadrivalent, PF [address] Figueroa MD [address] [facility], [address], [place], [address], [facility] 06/02/2022 23:01:15 DTaP 5 completed Not Available [facility] 02/14/2022 19:16:37 Influenza, split virus, quadrivalent, PF 3 completed Not Available [facility] 06/16/2023 09:36:36 COVID-19, mRNA, LNP-S, PF, 30 mcg/0.3 mL dose 1 completed Not Available [facility] 02/14/2022 19:16:37 COVID-19, mRNA, LNP-S, PF, 30 mcg/0.3 mL dose 1 completed Not Available [facility] 02/14/2022 19:16:37 Influenza, split virus, trivalent, preservative 2 completed Not Available [facility] 07/20/2019 02:12:11 Past Encounters Encounter ID Performer Location Encounter Start Date Encounter Closed Date Diagnosis/Indication Diagnosis SNOMED-CT Code Diagnosis ICD10 Code Diagnosis Note [id number] Court Figueroa MD [facility] [address] [facility] [address] [place] [address] 10/29/2024 10:13:03 10/29/2024 11:00:04 Allergic contact dermatitis caused by urushiol from [place] poison letitia 553458123 L23.7 Health Concerns Section Related Observation LastModified by Organization Detai ls LastModified Time None Recorded Concern Status LastModified by Organization Details LastModified Time None Recorded Payers Encounter Date Sequence Insurance Name Policy Number Policy Shah Covered Member ID Shah Member ID Guarantor Name 10/29/2024 1 [employer] [id number] Yesenia Chandler [id number] Tristan Chandler Notes Date Note Type Note Provider Name and Address Organization Details Recorded Time 10/29/2024 text/html poison letitia arms, torso, and neck and very allergic Court Figueroa MD [address] [facility], [facility] [address], [place], [address], [facility] 10/29/2024 10:43:56
--- OUTSIDE RECORDS SUMMARY | 2024-12-20 09:25 | XMS_ITS | Continuity of Care Document ---
Author Organization [facility] Address [address] [facility], [address] [place] [address] Care Team Providers Care Radiology Rn Name Role Phone [facility] Referring Provider [facility] Referring Provide r GRISELDA WONG Referring Provider [phone] Assessment Encounter Date Assessment Date Assessment LastModified by Organization Details LastModified Time 11/15/2024 11/15/2024 Mr. Chandler presents for a [...] cataplexy despite his medications. 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 His neurologist retired from private practice and he was seeing a separate sleep specialist. We discussed that there is a neurologist who also is a sleep specialist in [place] closer to where they live. We will [...] referral. We will recommend Dr. Espinoza at [facility]. He has a history of passing kidney [...] We will follow up closely. Not available 11/17/2024 22:22:26 Plan of Treatment Reminders Order Date Submit Date Provider Last Modified By Organization Details Last Modified Time Details Appointments None recorded. Lab None recorded. Referral neurologist referral 2024 025 arelis n5 Griselda Wong MD, [address], [address], 09:20:45 orthopedic spine surgeon referral 2024 025 [email or web address] n5 Christine nguyen MD, [address] [facility], [place], [address], 09:20:45 sleep medicine referral 2024 025 TRANG Wong MD, [address], [place], [address], 20:32:09 Procedures None recorded. Surgeries None recorded. Imaging None recorded. Medication Orders omeprazole 40 mg capsule,del ayed release 2024 [id number], [address], [place], [place], [id number], 5 10:21:05 protriptyli ne 10 mg tablet 2024 025 [facility] #[id number], [address], [place], [place], [id number], 5 10:21:11 Trulicity 1.5 mg/0.5 mL subcutaneou s pen injector 2024 [facility] #[id number], [address], [place], [place], [id number], 10:21:13 Patient TargetsNo targets recorded. 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 Referring Physician: [facility], Encounter Date: 11/15/2024 Orthopedic Spine Surgeon Ref erral for Degeneration of thoracolumbar intervertebral disc Referring Physician: [facility], Encounter Date: 11/15/2024 Problems Name Problem SNOMED Code Status Onset Date Resolution Date Notes Provider Name and Address Organization Details Recorded Time Diabetes mellitus 57406895 Active Not Available [facility] 2 19:16:36 Plantar fasciitis 737323747 Active Not Available [facility] 2 19:16:36 Disorder of sleep-wake cycle 027394136 Active Not Available [facility] 2 19:16:36 Disorder of urinary tract 42968303 Active Not Available [facility] 2 19:16:36 Uncontrolled type 2 diabetes mellitus 797527689 Active Not Available [facility] 2 19:16:36 Sleep apnea 79456317 Active Not Available [facility] 2 19:16:36 Hyperlipidemi a 04214526 Active Not Available [facility] 2 19:16:36 Herpes zoster 2654668 Active Not Available [facility] 2 19:16:36 Body mass index 40+ - severely obese 399640195 Active Not Available [facility] 2 19:16:36 Impotence of organic origin Active Not Available [facility] 2 19:16:36 Cataplexy and narcolepsy 475985414 Active Not Available [facility] 2 19:16:36 Kidney stone 33310081 Active Not Available [facility] 2 19:16:36 Palpitations 03032605 Active Not Available [facility] 2 19:16:36 Benign essential hypertension 9204283 Active Not Available [facility] 2 19:16:36 Actinic keratosis 592804486 Active Not Available [facility] 2 19:16:36 Anxiety state 466064701 Active Not Available [facility] 2 19:16:36 Glucose level outside reference range 981561354 Active Not Available [facility] 2 19:16:36 Depressive disorder 33268417 Active Not Available [facility] 2 19:16:36 Obesity 267051029 Active Not Available [facility] 2 19:16:36 Contusion of abdominal wall Active Not Available [facility] 19:16:36 Uric acid urolithiasis 933166305 Active Not Available [facility] 19:16:36 Narcolepsy 87956419 Active Not Available [facility] 2 19:16:36 Type 2 diabetes mellitus without complication 134075081 Active Not Available [facility] 19:16:36 Obstructive sleep apnea syndrome 93226072 Active Not Available [facility] 19:16:36 Extreme obesity with alveolar hypoventilati on 472757948 Active Not Available [facility] 19:16:36 Contusion of chest 64308952 Active Not Available [facility] 19:16:36 Restless legs 49928321 Active Not Available [facility] 19:16:36 Malaise and fatigue 397916076 Active Not Available [facility] 19:16:36 Problem Notes None recorded. Procedures Surgical History Date Name Laterality Status Provider Name and Address Organization Details Recorded Time 09/21/[address] Figueroa MD [address], [address], [facility] 09/27/2021 08:01:00 09/29/19 21 Cerumen Removal completed [facility] 09/28/2020 11:32:10 03/21/20 19 Neb[address] tx completed Court Figueroa MD [address], [address], [facility] 03/21/2019 11:32:40 06/17/20 [address] completed [address] Figueroa MD [address], [address], [facility] 06/17/2011 10:59:07 07/03/19 02 Cholecystectomy completed [facility] 06/17/2011 09:49:34 07/03/18 85 Orthopaedic Surgery completed [facility] 06/17/2011 09:50:06 Imaging Results None recorded. Procedure [...] Updated DateTime 5 172.72 cm 45.2 kg/m2 524187. 93 g 110 /min 96 % 96 % 97 [degF] 148 mm[Hg] 90 mm[Hg] [facility] 5 09:03:18 Social History Question Answer Notes LastModified by Organizat ion Details LastModified Time Tobacco Smoking Status Former Smoker quit in 2014 Not Available [facility] 04/28/2020 03:11:16 Auto Related Injury? No Information not available 06/17/2011 What Is Your Level Of Caffeine Consumption? Moderate One Regular Soda Per Day. The Rest Of The Time It Is Water. Information not available 09/26/2023 How Much Tobacco Do You Chew? None Information not available 09/26/2023 Diabetes No Information no t available 06/17/2011 What Type Of Diet Are You Following? REGULAR [id number] Information not available 04/28/2020 Which Illicit Or Recreational Drugs Have You Used? None [id number] Information not available 04/28/2020 Education 12 Information no t available 06/17/2011 What Is The Highest Grade Or Level Of School You Have Completed Or The Highest Degree You Have Received? [id number] [facility] Information not available 09/26/2023 Family History Of Heart Disease? No Information not available 06/17/2011 High Blood Pressure No Information not available 06/17/2011 Live Alone Or With Others? With Others Information not available 06/17/2011 Marital Status Informatio n not available 06/17/2011 What Was The Date Of Your Most Recent Tobacco Screening? 11/15/2024 Information not available 11/15/2024 How Many Children Do You Have? 2 [id number] Information not available 04/28/2020 Obese Yes Information no t available 01/27/2017 What Is Your Relationship Status? Information not available 09/26/2023 How Much Tobacco Do You Smoke? No [id number] Information not available 04/28/2020 General Stress Level High Information not available 06/17/2011 How Many Years Have You Smoked Tobacco? 20 [id number] Information not available 04/28/2020 Sex: Unknown Functional Status Question Answer Note LastModified by Organizat ion Details LastModified Time What is your level of alcohol consumption? None [id number] Information not available 04/28/2020 Are you currently employed? Yes [id number] Information not available 04/28/2020 Are you able to care for yourself? 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 None [id number] Information not available 04/28/2020 Mental Status None recorded. Family History Relationship Description Onset Age of this Age Resolved Age Notes LastModified by Organization Details LastModified Time Mother Problem 59 MVA trauma Not available 12/31/2015 15:50:33 Mother Heart disease stents (previ ously record ed as Heart Proble m) Not available 12/31/2015 15:50:33 Notes:father and 2 sisters a re healthy Medical History Condition Response Coronary Artery Disease N Gout N Blood Diseases N Kidney Stones N Hyperthyroidism N Depression N COPD N Hypothyroidism N Developmental or Behavioral Disorders [...] Disease N Pulmonary Embolism N Hypertension N Chicken Pox N Osteoporosis N Immunizations Vaccine Type Date Status Note Provider Nam e and Address Organization Details Recorded Time Influenza, split virus, quadrivalent, preservative 7 completed Not Available [facility] 07/20/2019 02:12:14 Influenza, recombinant, quadrivalent, PF 8 completed Not Available [facility] 07/20/2019 02:12:13 Hep A, adult 8 completed Not Available [facility] 07/20/2019 02:12:07 pneumococcal polysaccharide PPV23 8 completed Not Available [facility] 07/20/2019 02:12:07 Hep A, adult 9 completed Not Available [facility] 07/20/2019 02:12:07 Influenza, recombinant, quadrivalent, PF 9 completed Not Available [facility] 07/20/2019 02:12:11 Influenza, recombinant, quadrivalent, PF 0 completed Not Available [facility] 04/07/2020 13:42:17 Tdap 2 completed [facility] 12/21/2021 14:46:54 Influenza, recombinant, quadrivalent, PF [address] Figueroa MD [address] [facility], [address], [place], [address], [facility] 06/02/2022 23:01:15 DTaP 5 completed Not Available [facility] 02/14/2022 19:16:37 Influenza, split virus, quadrivalent, PF 3 completed Not Available [facility] 06/16/2023 09:36:36 COVID-19, mRNA, LNP-S, PF, 30 mcg/0.3 mL dose 1 completed Not Available [facility] 02/14/2022 19:16:37 COVID-19, mRNA, LNP-S, PF, 30 mcg/0.3 mL dose 1 completed Not Available [facility] 02/14/2022 19:16:37 Influenza, split virus, trivalent, preservative 2 completed Not Available [facility] 07/20/2019 02:12:11 Past Encounters Encounter ID Performer Location Encounter Start Date Encounter Closed Date Diagnosis/Indication Diagnosis SNOMED-CT Code Diagnosis ICD10 Code Diagnosis Note [id number] Court Figueroa MD [facility] [address] [address] 10/29/2024 10:13:03 10/29/2024 11:00:04 Allergic contact dermatitis caused by urushiol from [facility] letitia 572437020 L23.[id number] Figueroa MD [facility] [address] [place] [address] 11/15/2024 08:51:47 11/18/2024 10:08:28 Adult health examination 850315005 Z00.01 Essential hypertension 27340689 I10 Hyperlipidemia 07151924 E78.5 Cataplexy and narcolepsy 465384030 G47.411 Type 2 laquita betes mellitus without complication 932935785 E11.9 History of calculus of kidney 684612585 Z87.442 Narcolepsy 05188721 G47. 419 Sleep apnea 70675069 G47 .30 Screening for cardiovascular system disease 580026991 Z13.6 Cataplexy 06623045 G47.4 11 Degenerati on of thoracolumbar intervertebral disc 26744870 M51.35 Gastroesop hageal reflux disease 941178751 K21.9 Body mass index 40+ - severely obese 934883858 Z68.42 Review of medication 182 833080 Z79.899 Health Concerns Section Related Observation LastModified by Organization Detai ls LastModified Time None Recorded Concern Status LastModified by Organization Details LastModified Time None Recorded Payers Encounter Date Sequence Insurance Name Policy Number Policy Shah Covered Member ID Shah Member ID Guarantor Name 11/15/2024 1 [id number] [id number] Yesenia Chandler [id number] Tristan Chandler Notes Date Note Type Note Provider Name and Address Organization Details Recorded Time 11/15/2024 text/html had a knot on hi [...] it is healing. Court Figueroa MD [address] [facility], [address], [place], [address], [facility] 11/17/2024 22:31:48
--- NOTE | 2024-12-20 09:37 | ECG_ITS ---
APPROVED REPORT Exam: Resting ECG HR:98 bpm ECG Measurements Heart Rate 98 AXES MI 164 P 50 QRSd 104 QRS 56 QT 348 T 4 QTc 404 Conclusion SINUS RHYTHM Isolated Q in III - probable normal variant O/w NORMAL ECG UNCONFIRMED REPORT Electronically signed by : Caleb Dowling MD 12/21/2024 14:53:57
== END 2024-12-20 23:59 | disposition home or self-care (01) ==
LOC: RT 09:23
PROVIDERS: PCP Family Medicine; Visit Provider Specialist
DX: I49.9 Cardiac arrhythmia, unspecified (principal); R94.31 Abnormal electrocardiogram [ECG] [EKG]
CPT/HCPCS: 93005

== ENCOUNTER 2025-03-12 10:10 | Outpatient (CLI) | payer BC, SELFPAY | END 2025-03-12 23:59 | disposition home or self-care (01) | LOC: LAB 10:11 | PROVIDERS: PCP Family Medicine; Visit Provider Specialist | DX: G47.411 Narcolepsy with cataplexy (principal); G47.33 Obstructive sleep apnea (adult) (pediatric); E11.69 Type 2 diabetes mellitus with other specified complication; E66.9 Obesity, unspecified; F32.A Depression, unspecified; I10 Essential (primary) hypertension; I49.9 Cardiac arrhythmia, unspecified | CPT/HCPCS: 36415 ==